=== PATIENT | female | born 2000 | race Caucasian/White ===

== ENCOUNTER 2024-02-02 17:56 | Emergency (ER) | payer OTHER, SELFPAY ==
[2024-02-02] VITALS (12 sets, daily range): BP systolic 122–174; BP diastolic 78–118; PULSE 86–120; TEMP 36.9; O2SAT 95–98; BMI 33.9
[2024-02-02 19:11] LABS: Bilirubin Urine NEGATIVE (NEGATIVE); Blood Urine NEGATIVE (NEGATIVE); Clarity Urine CLEAR (CLEAR); Color Urine LT. YELLOW (YELLOW); Glucose Urine UA NEGATIVE (NEGATIVE); Ketones Urine NEGATIVE (NEGATIVE); Leukocyte Esterase Urine SMALL (NEGATIVE); Nitrite Urine NEGATIVE (NEGATIVE); Protein Urine NEGATIVE (NEG/TRACE); Urobilinogen Urine 0.2 EU/dL (0.2-1.0)
[2024-02-02 19:19] LABS: Urine Microscopic Indicated YES
--- NOTE | 2024-02-02 19:20 | CT_ITS ---
[address] [address] Patient Name: SHIRA MOREIRA MRN: [id number] date: 2000 Sex: F Assigned Patient Location: ER Current Patient Location: ER Accession/Order Number: [id number] Exam Date: 02/02/2024 19:54 Report Date: 02/02/2024 21:58 At the request of: SYLVAIN WALLER Procedure: CT abdomen pelvis wo con EXAMINATION: CT abdomen pelvis wo con, 02/02/2024 7:54 PM EDT HISTORY: right flank pain COMPARISON: None. TECHNIQUE: CT scan of the abdomen and pelvis was performed without IV contrast. CT dose reduction technique was used, including Automated Exposure Control. FINDINGS: LOWER CHEST: The visualized lungs are clear. LIVER: Unremarkable. GALLBLADDER AND BILIARY SYSTEM: Unremarkable. SPLEEN: Unremarkable. PANCREAS: Unremarkable. ADRENAL GLANDS: Unremarkable. KIDNEYS AND URETERS: Punctate nonobstructing calculus in the upper pole the right kidney. 2 mm nonobstructing calculus in the mid to lower pole the left kidney. No ureteral calculus or hydronephrosis. No significant perinephric stranding. BLADDER: Under distended. GASTROINTESTINAL TRACT: No evidence of bowel obstruction or colitis. Normal appendix. VASCULATURE: The abdominal aorta is normal in caliber. RETROPERITONEUM: No lymphadenopathy. PERITONEUM/MESENTERY: No abdominal ascites. No free air. PELVIS: No pelvic ascites or lymphadenopathy. BODY WALL: Small fat-containing umbilical hernia. BONES: No acute abnormality. CT/CT abdomen pelvis wo con IMPRESSION: 1. Bilateral nephrolithiasis. No hydronephrosis. 2. Small fat-containing umbilical hernia. Electronically authenticated by: DANIAL NUÑEZ Date: 02/02/2024 21:58
--- NOTE | 2024-02-02 19:22 | ED_ITS ---
HPI HPI - General Adult General Chief complaint: Back Pain/Injury Stated complaint: FLANK PAIN Time Seen by Provider: 02/02/24 18:52 Source: patient History of Present Illness HPI narrative: Is a 23-year-old female who presents to the emergency department for the evaluation of multiple complaints. She states for the last day she has had right-sided low back pain radiating into the right lower quadrant and into the suprapubic abdomen. She denies any associated urinary complaints, fevers, chills, nausea or vomiting. She denies any previous abdominal surgeries. She further complains of swelling to the right labia minora that she noticed for the last day and was concerned that the 2 may be related. There has been no drainage from the vagina. She is not concerned for . She took ibuprofen prior to arrival. Related Data Previous Rx's ?Medication ?Instructions ?Recorded cephalexin 500 mg capsule 500 mg PO Q8H 5 days #15 caps 02/02/24 hyoscyamine sulfate 0.125 mg 0.125 mg PO Q6H PRN abdominal pain 02/02/24 tablet (Levsin) #12 tabs ketorolac 10 mg tablet 10 mg PO TID PRN pain #10 tabs 02/02/24 ondansetron 4 mg disintegrating 4 mg PO Q6H PRN nausea and 02/02/24 tablet vomiting #12 tabs Allergies Allergy/AdvReac Type Severity Reaction Status Date / Time No Known Drug Allergies Allergy Verified 02/02/24 18:01 Opioid HPI Opioid Management Most Recent Opioid Data: Last Pain Scale 7 02/02/24 19:40 Last ED Pain Assessment 02/02/24 20:30 Last MAR Pain Assessment 02/02/24 19:40 Review of Systems ROS Constitutional Denies: fever or chills Ears, nose, mouth, and throat Denies: throat pain or nasal congestion Respiratory Denies: shortness of breath Gastrointestinal Reports: abdominal pain; Denies: nausea or vomiting Genitourinary Reports: genital lesion; Denies: painful urination Musculoskeletal Reports: back pain; Denies: neck pain Integumentary/Breast Denies: rash Hematologic/Lymphatic Denies: easy bruising or easy bleeding Exam Narrative Exam Narrative: Gen.: Awake, alert, in no distress Head: Normocephalic, atraumatic ENT: Moist mucous membranes Respiratory: No respiratory distress, lungs clear bilaterally Cardio: Regular rate and rhythm Gastrointestinal: Abdomen is soft, nondistended and tender to palpation in the suprapubic abdomen and right lower quadrant with no McBurney's point tenderness Back: No CVA tenderness, no tenderness over the T-spine or L-spine : Minimal induration and swelling of the right labia minora consistent with a small/early Bartholin cyst Extremities: Moves extremities equally Psych: Normal mood and affect Neuro: No focal neuro deficit Skin: Warm, dry, intact Constitutional Vital Signs, click to edit/add: Last Vital Signs Temp 98.5 F 02/02/24 18:01 Pulse 86 02/02/24 21:04 Resp 18 02/02/24 18:01 BP 124/78 02/02/24 21:45 Pulse Ox 97 02/02/24 21:50 O2 Del Method Room Air 02/02/24 18:01 Course Vital Signs Vital signs: Vital Signs Temperature 98.5 F 02/02/24 18:01 Pulse Rate 120 H 02/02/24 18:01 Respiratory Rate 18 02/02/24 18:01 Blood Pressure 174/118 H 02/02/24 18:01 Pulse Oximetry 98 02/02/24 18:01 Oxygen Delivery Method Room Air 02/02/24 18:01 Temperature 98.5 F 02/02/24 18:01 Pulse Rate 86 02/02/24 21:04 Respiratory Rate 18 02/02/24 18:01 Blood Pressure 124/78 02/02/24 21:45 Pulse Oximetry 97 02/02/24 21:50 Oxygen Delivery Method Room Air 02/02/24 18:01 Medical Decision Making [facility] Narrative Medical decision making narrative: Studies reviewed and noted showing mild urinary tract infection, exam is consistent with an early Bartholin cyst on the labia. Patient treated with Keflex in the ER. Her pain has improved with IV fluids, pain medication and Levsin. Her vital signs are normal on reevaluation by attending physician. Abdomen is soft and benign. CT of the abdomen and pelvis with no evidence of acute process, patient discharged home on Keflex, Levsin and Toradol to follow- up with PCP and [employer] REPRESENTATIVE. Return to the ER if symptoms change or worsen SHARED APC VISIT, PHYSICIAN ATTESTATION: Txoj-qi-dkue I performed a substantive part of the MDM during the patient?s E/M visit. I personally evaluated and examined the patient. I personally made or approved the documented management plan and acknowledge its risk of complications. Medical Records Medical records reviewed: Yes I reviewed the patient's medical records Lab Data Lab results reviewed: Yes I reviewed the patient's lab results Labs: Lab Results 02/02/24 02/02/24 Range/Units 18:45 19:40 WBC 10.5 (4.0-11.0) 10^3/uL RBC 4.10 L (4.20-5.40) 10^6/uL Hgb 13.0 (12.0-16.0) g/dL Hct 39.1 (36.0-48.0) % MCV 95.4 (81.0-99.0) fL MCH 31.7 (26.7-34.0) pg MCHC 33.2 (29.9-35.2) g/dL RDW 12.9 (11.0-15.0) % Plt Count 325 (150-450) 10^3/uL MPV 11.8 (9.5-13.5) fL Neut % (Auto) 70.8 (43.0-75.0) % Lymph % (Auto) 17.7 L (20.5-60.0) % [place] % (Auto) 9.6 (1.7-12.0) % Eos % (Auto) 1.1 (0.9-7.0) % Baso % (Auto) 0.5 (0.2-2.0) % Neut # (Auto) 7.4 H (1.4-6.5) 10^3/uL Lymph # (Auto) 1.9 (1.2-3.8) 10^3/uL [place] # (Auto) 1.0 H (0.3-0.8) 10^3/uL Eos # (Auto) 0.1 (0.0-0.7) 10^3/uL Baso # (Auto) 0.1 (0.0-0.1) 10^3/uL Abs Immat Gran (auto) 0.03 (0.00-0.03) 10^3/uL Imm/Tot Granulo (auto) 0.3 (0.0-0.5) % Sodium 142 (136-145) mmol/L Potassium 3.4 L (3.5-5.1) mmol/L Chloride 105 (98-107) mmol/L Carbon Dioxide 26.8 (21.0-32.0) mmol/L Anion Gap 13.6 BUN 9.0 (7.0-18.0) mg/dL Creatinine 0.79 (0.55-1.02) mg/dL Est GFR ( Amer) >60 (>=60) Est GFR (Non-Af Amer) >60 (>=60) BUN/Creatinine Ratio 11.4 Glucose 111 H (74-106) mg/dL Lactate 1.7 (0.4-2.0) mmol/L Calcium 8.9 (8.5-10.1) mg/dL Total Bilirubin 0.3 (0.2-1.0) mg/dL AST 18 (15-37) U/L ALT 18 (14-59) U/L Alkaline Phosphatase 63 (46-116) U/L Total Protein 7.7 (6.4-8.2) g/dL Albumin 3.8 (3.4-5.0) g/dL Globulin 3.9 g/dL Albumin/Globulin Ratio 1.0 Urine Color Lt. yellow (YELLOW) Urine Clarity Clear (CLEAR) Urine pH 6.0 (5.0-9.0) Ur Specific [place] 1.020 (1.005-1.025) Urine Protein Negative (NEG/TRACE) mg/dL Urine Glucose (UA) Negative (NEGATIVE) mg/dL Urine Ketones Negative (NEGATIVE) mg/dL Urine Occult Blood Negative (NEGATIVE) Urine Nitrite Negative (NEGATIVE) Urine Bilirubin Negative (NEGATIVE) Urine Urobilinogen 0.2 (0.2-1.0) EU/dL Ur Leukocyte Esterase Small A (NEGATIVE) Urine RBC 0-2 (0-2) #/HPF Urine WBC 2-5 A (NONE SEEN) #/HPF Ur Squamous Epith Cells Few A (NONE/RARE) #/LPF Urine Crystals None seen (None Seen) #/HPF Urine Bacteria Moderate A (NONE SEEN) #/HPF Urine Casts None seen (NONE SEEN) #/LPF Urine Mucus None seen (NONE SEEN) Ur Culture Indicated? Yes Urine HCG, Qual Negative (NEGATIVE) Imaging Data CT scan - abdomen: Attestation: I have reviewed the pertinent imaging results. Radiologist's impression: ITS Impressions Abdomen/Pelvis CT 02/02/24 19:20 IMPRESSION: 1. Bilateral nephrolithiasis. No hydronephrosis. 2. Small fat-containing umbilical hernia. Electronically authenticated by: DANIAL NUÑEZ Date: 02/02/2024 21:58 Discharge Plan Discharge Stand Alone Forms: Portal Instructions Chief Complaint: Back Pain/Injury Clinical Impression: UTI (urinary tract infection), Labial abscess, Abdominal pain Patient Disposition: Home, Self-Care Time of Disposition Decision: 22:02 Condition: Good Prescriptions / Home Meds: New ketorolac 10 mg tablet 10 mg PO TID PRN (Reason: pain) Qty: 10 0RF cephalexin 500 mg capsule 500 mg PO Q8H 5 Days Qty: 15 0RF hyoscyamine sulfate [Levsin] 0.125 mg tablet 0.125 mg PO Q6H PRN (Reason: abdominal pain) Qty: 12 0RF ondansetron 4 mg tablet,disintegrating 4 mg PO Q6H PRN (Reason: nausea and vomiting) Qty: 12 0RF Print Language: Maori Instructions: Urinary Tract Infection in Women (ED), Abdominal Pain (ED) Referrals: Alvaro Sidhu DO [Physician] - 1 week Physician,Non-Staff, MD [Primary Care Provider] - 1 week
[2024-02-02 19:29] LABS: Bacteria Urine MODERATE #/HPF (NONE SEEN); Cast Seen? NONE SEEN #/LPF (NONE SEEN); Crystals Seen? None Seen #/HPF (None Seen); Mucus Urine NONE SEEN (NONE SEEN); RBC Urine 0-2 #/HPF (0-2); Squamous Epithelial Cell Urine FEW #/LPF (NONE/RARE); Urine Culture Indicated YES
[2024-02-02 19:39] LABS: HCG Qualitative Urine* NEGATIVE (NEGATIVE); Internal Control Within Normal Limits
[2024-02-02] MEDS: ONDANSETRON PF 4 MG/2 ML VIAL IV (19:39)
[2024-02-02] MEDS: HYOSCYAMINE SULFATE 0.125 MG TAB.SUBL SL (19:39)
[2024-02-02] MEDS: HYDROMORPHONE HCL 0.5 MG/0.5 ML SYRINGE IV (19:40)
[2024-02-02] MEDS: 0.9 % SODIUM CHLORIDE 1,000 ML 1000 ML IV (19:43)
[2024-02-02 19:52] LABS: Basophils Absolute Auto 0.1 10^3/uL (0.0-0.1); Basophils Percent Auto 0.5 % (0.2-2.0); Eosinophils Absolute Auto 0.1 10^3/uL (0.0-0.7); Eosinophils Percent Auto 1.1 % (0.9-7.0); Hematocrit 39.1 % (36.0-48.0); Immature Granulocytes Abs Auto 0.03 10^3/uL (0.00-0.03); Immature Granulocytes Pct Auto 0.3 % (0.0-0.5); Lymphocytes Absolute Auto 1.9 10^3/uL (1.2-3.8); Lymphocytes Percent Auto 17.7 % (20.5-60.0); Mean Corpuscular HGB Conc 33.2 g/dL (29.9-35.2); Mean Corpuscular Hemoglobin 31.7 pg (26.7-34.0); Mean Corpuscular Volume 95.4 fL (81.0-99.0); Mean Platelet Volume 11.8 fL (9.5-13.5); Monocytes Percent Auto 9.6 % (1.7-12.0); Neutrophils Absolute Auto 7.4 10^3/uL (1.4-6.5); Neutrophils Percent Auto 70.8 % (43.0-75.0); Platelet Count 325 10^3/uL (150-450); Red Cell Distribution Width 12.9 % (11.0-15.0); White Blood Count 10.5 10^3/uL (4.0-11.0)
[2024-02-02 20:10] LABS: Lactate/Lactic Acid 1.7 mmol/L (0.4-2.0)
[2024-02-02 20:17] LABS: Alanine Aminotransferase 18 U/L (14-59); Albumin Level 3.8 g/dL (3.4-5.0); Alkaline Phosphatase 63 U/L (46-116); Anion Gap 13.6; Aspartate Amino Transferase 18 U/L (15-37); BUN Creatinine Ratio 11.4; Bilirubin Total 0.3 mg/dL (0.2-1.0); Calcium 8.9 mg/dL (8.5-10.1); Carbon Dioxide 26.8 mmol/L (21.0-32.0); Chloride 105 mmol/L (98-107); Estimated GFR (African America >60 (>=60); Estimated GFR (Non-African Ame >60 (>=60); Globulin 3.9 g/dL; Glucose 111 mg/dL (74-106); Potassium 3.4 mmol/L (3.5-5.1); Sodium 142 mmol/L (136-145); Total Protein 7.7 g/dL (6.4-8.2)
[2024-02-02] MEDS: CEPHALEXIN 500 MG CAPSULE PO (21:54)
== END 2024-02-02 22:13 | disposition home or self-care (01) ==
PROVIDERS: Physician Assistant; Emergency Provider Emergency Medicine
DX: N39.0 Urinary tract infection, site not specified (principal); R10.9 Unspecified abdominal pain; N76.4 Abscess of vulva
CPT/HCPCS: 36415; 74176; 80053; 81001; 83605; 84703; 85025; 87086; 96374; 96375; 99285; J1170; J2405

== ENCOUNTER 2025-06-01 10:02 | Outpatient (OUT) | payer OTHER, SELFPAY ==
--- OUTSIDE RECORDS SUMMARY | 2025-06-01 10:09 | XMS_ITS | Clinical Summary ---
Author Organization [facility] Address [address] [place] [address] Care Team Providers Care Television News Video Editor Name Role Phone Shannon Anna NP Primary Care Provider Allergies Active AllergyReactionsCriticalityNoted DateCommentsLidocaineDizziness,Swelling 12/02/2024 Swelling at injection site Medications MedicationSigDispense QuantityRefillsLast FilledStart DateEnd DateStatus metFORMIN XR (Glucophage-XR) 500 MG 24 hr tablet Indications:PCOS (polycystic ovarian syndrome)Take 1 tablet (500 mg) by mouth in the evening. Take with meals Do not crush, chew, or split. 30 tablet 11001/12/575536/6Active metFORMIN XR (Glucophage-XR) 500 MG 24 hr tablet Indications:Insulin resistanceTake 2 tablets (1,000 mg) by mouth in the evening. Take with meals Do not crush, chew, or split. 60 tablet 11002/09/615422/6Active Encounters DateTypeDepartmentCare BtplWtpnxbqgvsf42/29/2025 9:20 AM EDTRoutine [facility] [address] [place] [address] [place] [address] Cammy Cruz, PEARL Second trimester ([facility]); 14 weeks gestation of ([facility])04/27/2025amboo flowsheet [facility] [address] [place] [address] [place] [address] Cammy Cruz NP 03/25/2025 10:00 AM EDTInitial [facility]al [facility] [place] [address] [place]: 9w5d03/25/2025 9:30 AM EDTAncillary Procedure [facility] [address] [place] [address] [place] [address] Missed menses; Positive urine test ([facility])03/18/2025Travelfrom Last 3 Months Social History Tobacco UseTypesPacks/DayYears UsedDateSmoking Tobacco: Never Assessed Estimated Date of TlymsmzcLfbovvxvOkk63/26/2026ased on UltrasoundSex and Gender InformationValueDate RecordedSex Assigned at BirthNot on fileLegal SexFemale 12/21/2024 3:32 PM EDTGender IogdmcabFltpxq10/13/2025 2:01 PM EDTSexual OrientationNot on file Last Filed Vital Signs Vital SignReadingTime TakenCommentsBlood Fmxlsqaq026/7010 9:31 AM EDT Pulse--Temperature--Respiratory Rate--Oxygen Saturation--Inhaled Oxygen Concentration--Omapdp651 kg (283 lb 4 oz)04/27/2025 9:31 AM GAERgcqsu502.3 cm (5' 11 )02/09/2025 2:20 PM EDTBody Mass Index39.51002/09/2025 2:20 PM EDT Plan of Treatment DateTypeDepartmentCare Team (Latest Contact Info)Xtddvukpgog76/03/2025 11:20 AM ESTRoutine [facility] [address] [place] [address] [place] [address] Alvaro Sidhu DO [address] [place] [address] [address] [place], [place] [id number] Health MaintenanceDue DateLast DoneCommentsCOVID-19 Vaccine ( season) 2025Influenza Vaccine (#1)513Pneumococcal Vaccine: Pediatrics (0 to 5 Years) and At-Risk Patients (6 to 64 Years)Aged OutNo longer eligible based on patient's age to complete this topic Procedures Procedure NamePriorityDate/TimeAssociated DiagnosisCommentsPOCT URINALYSIS WLWKWNWKBvwwpzz85/29/2025 9:35 AM EDT Second trimester ([facility]) POCT URINALYSIS TDXOTUOWAujrulj71/26/2025 11:16 AM EDT Missed menses POCT , ZZZNAKngbjtk50/26/2025 11:16 AM EDT Missed menses US OB WBXQLVZWLVVKCvyhpmn41/26/2025 10:36 AM EDT Missed menses Positive urine test ([facility]) from Last 3 Months Results * (ABNORMAL) POCT urinalysis dipstick manually resulted (04/27/2025 9:35 AM EDT) Only the most recent of2 resultswithin the time period is included. ComponentValueRef RangeTest MethodAnalysis TimePerformed AtPathologist Signature Color, UAYellowClarity, UAClearGlucose, UANegativeNegative - 2000(110) ++++ mg/dLBilirubin, UANegativeNegative - 4(70) +++ mg/dLKetones, UANegativeNegative - 160(16) ++++ mg/dLSpec Grav, UA1.0151 - 1.03Blood, UANegativeNegative - 50 Jostin/mcLpH, UA6.05 - 9Protein, UANegativeNegative - 2000(20) ++++ mg/dL Urobilinogen, UA0.20.2 - 12 mg/dLLeukocytes, UAPositiveNegative - 500+++ Elian/mcL Comment:1+Nitrite, UANegativeNegative - PositiveSpecimen (Source)Anatomical Location / LateralityCollection Method / VolumeCollection TimeReceived TimeUrine 04/27/2025 9:35 AM EDT Narrative Authorizing ProviderResult TypeResult StatusKrmakeda Dukeerly NPPOINT OF CARE TEST ENTER/EDIT ORDERABLESFinal Result * (ABNORMAL) POCT , urine manually resulted (03/25/2025 11:16 AM EDT) ComponentValueRef RangeTest MethodAnalysis TimePerformed AtPathologist SignaturePreg Test, UrPositiveNegativeSpecimen (Source)Anatomical Location / LateralityCollection Method / VolumeCollection TimeReceived TimeUrine 03/25/2025 11:16 AM EDT Narrative Authorizing ProviderResult TypeResult StatusCorey Nahum DOPOINT OF CARE TEST ENTER/EDIT ORDERABLESFinal Result * US OB transvaginal (03/25/2025 10:36 AM EDT)Anatomical RegionLaterality ModalityBodyUltrasoundSpecimen (Source)Anatomical Location / Laterality Collection Method / VolumeCollection TimeReceived Time03/25/2025 11:53 AM EDT Impressions 03/25/2025 12:34 PM EDT Findings consistent with a live intrauterine gestation, current sonographic age of 9 weeks and 5 days resulting in an estimated date of delivery of October 23, 2025 TRANSCRIBED BY: ? ELECTRONICALLY SIGNED BY: Mayur Comer MD Narrative 03/25/2025 12:34 PM EDT FINDINGS: A single intrauterine gestational sac is present. ??No subchorionic hemorrhage. ??A single pole is present. Normal heart rate at 166 beats per minute. ??Yolk sac also is seen. ?? Current sonographic age is 9 weeks and 5 days based on the crown-rump length measurement of 2.9 cm. ??Based on this age, current estimated date of delivery is October 23, 2025. ?? No pelvic fluid or adnexal mass present. ??Cervix is closed, 4.6 cm. Procedure Note Mayur Comer MD - 03/25/2025 FINDINGS: A single intrauterine gestational sac is present. No subchorionichemorrhage. A single pole is present. Normal heart rate at166 beats per minute. Yolk sac also is seen. Current sonographic age is9 weeks and 5 days based on the crown-rump length measurement of 2.9 cm.Based on this age, current estimated date of delivery is October 23, 2025.No pelvic fluid or adnexal mass present. Cervix is closed, 4.6 cm. IMPRESSION: Findings consistent with a live intrauterine gestation, currentsonographic age of 9 weeks and 5 days resulting in an estimated date ofdelivery of October 23, 2025 TRANSCRIBED BY: ELECTRONICALLY SIGNED BY: Mayur Comer MD Authorizing ProviderResult TypeResult StatusCorey Nahum DOIMG OB US PROCEDURES Final Result from Last 3 Months Insurance Care Teams Team MemberRelationshipSpecialtyStart DateEnd Date Shannon Anna NP [facility] [place] [address] PCP - GeneralFamily Medicine01/12/25
--- OUTSIDE RECORDS SUMMARY | 2025-06-01 10:09 | XMS_ITS | Clinical Summary ---
Author Organization [employer] s tem Address [id number] [address] [place] [address] Care Team Providers Care Sand Caster Apprentice Name Role Phone Shannon Anna Primary Care Provid er Allergies Active AllergyReactionsCriticalityNoted WirgCehjihuzCgbwdurqqUyfutlac51/05/2025 Swelling at injection site Medications No known medications Social History Tobacco UseTypesPacks/DayYears UsedDateSmoking Tobacco: Never AssessedAlcohol UseStandard Drinks/WeekCommentsYes0 (1 standard drink = 0.6 oz pure alcohol) socialHunger ScreeningAnswerDate RecordedWithin the past 12 months we worried whether our food would run out before we got money to buy more.Never True 12/02/2024Within the past 12 months the food we bought just didn't last and we didn't have money to get more.Never True12/02/2024CommentsUnknownSex and Gender InformationValueDate RecordedSex Assigned at BirthNot on fileLegal Sex Tzmpqj3712/02/2024 4:43 PM EDTGender IdentityNot on fileSexual OrientationNot on file Last Filed Vital Signs Vital SignReadingTime TakenCommentsBlood Nlgtvgmr015/95012/02/2024 4:58 PM EDT Qwnyu08553/05/2025 4:58 PM SXNUsigjmyghbx08.2 ??C (99 ??F)12/02/2024 4:58 PM EDT Respiratory Usra210412/02/2024 4:58 PM EDTOxygen Wwkzikjhit37%12/02/2024 4:58 PM EDTInhaled Oxygen Concentration--Tdcndt515.2 kg (265 lb)12/02/2024 4:58 PM EDT Rkoqdp651.3 cm (5' 11 )12/02/2024 4:58 PM EDTBody Mass Index36.9612/02/2024 4:58 PM EDT Plan of Treatment Health MaintenanceDue DateLast DoneCommentsDepression Vhahvxsru13/18/2015Tobacco Bfdnxbcvx26/18/2015dult BMI Follow Up Plan1DTaP,Tdap and Td Vaccines (1 - Tdap)2Pap Smear11/15/2023OVID-19 Vaccine (2 - season) /Influenza Jsetopf18dult BMI Screening Medical Devices Not on file Insurance Care Teams Team MemberRelationshipSpecialtyStart DateEnd Date Shannon Anna APRN-NP [address] [place] [address] PCP - GeneralNurse Practitioner12/02/24
--- OUTSIDE RECORDS SUMMARY | 2025-06-01 10:33 | XMS_ITS | CCD ---
Author Organization [facility] Care Team Providers Care Mail Superintendent Name Role Phone REQUEST, DR NONE LISTED Primary Care Unavaila ble PAY, DR DELVALLE Admitting Unavailable PAY, DR DELVALLE Attending Unavailable PAY, DR DELVALLE Consulting Unavailable ALEXEY Anna Primary Care Provider ALEXEY Anna Attending Provider ALEXEY Gurrola Attending Provider [phone] NO FAMILY, PHYSICIAN Primary Care Provider Unava ilable Maira Stoddard APRN Attending Provider [phone] SHANNON ANNA Primary Care Unavailable SonurbacheShannon harvey NP Primary Care Provider NO FAMILY, PHYSICIAN Primary Care Provider Unava ilable Melody Goodson CMA Attending Provider Unavaila Carmen Chau DO Attending Provider Shannon Anna Admitting Unavailable Shannon Anna Primary Care Unavailable Shannon Anna Attending Unavailable NO FAMILY, PHYSICIAN Primary Care Unavailable Tricia Gurrola Admitting Unavailable Tricia Gurrola Attending Unavailable Carmen Sidhu Admitting Unavailable Carmen Sidhu Attending Unavailable NO FAMILY, PHYSICIAN Primary Care Unavailable NO FAMILY, PHYSICIAN Primary Care Unavailable Maira Stoddard Admitting Unavailable Maira Stoddard Attending Unavailable CAMMY CRUZ Attending Unavailable CARMEN SIDHU Referring Unavailable CARMEN SIDHU Attending Unavailable CARMEN SIDHU Attending Unavailable Allergies Allergy ClassificationReported Allergen(s)Allergy TypeDate of OnsetReaction(s) Facility (19 sources)Lidocaine; Translations: [LIDOCAINE]Drug Ljzmoqi70-39-3357HcinzmiyrOhioHealth [facility] (3 sources)pineAllergy to -[phone]n Community Hospital Medications Current Medications MedicationDrug Class(es)DatesSig (Normalized)Sig (Original)[id number] 200 actuat albuterol 0.09 mg/actuat metered dose inhaler (1 source)beta2-Adrenergic AgonistStart: 11-84-0141wbcz 1 puff(s) by inhalation every four hoursdextromethorphan hydrobromide 15 mg / guaiFENesin 400 mg / pseudoephedrine hydrochloride 60 mg oraltablet (1 source)alpha-Adrenergic Agonist, Uncompetitive B-bntgjz-J-aspartate Receptor Antagonist, Sigma-1 AgonistStart: 92-50-2850bkxk 4 tablets by mouth every twenty-four hours as hr metFORMIN hydrochloride 500 mg extended release oral tablet (20 sources)BiguanideStart: 02-09-2025 End: 17-64-5133kmyh 2 tablets by mouth every twenty-four hours at mealtime metFORMIN XR (Glucophage-XR) 500 MG 24 hr tablet Indications: Insulin resistance Take 2 tablets (1,000 mg) by mouth in the evening. Take with meals Do not crush, chew, or split. 60 tablet 11 02/09/2025 02/09/2026 ActiveStart: 01-12-2025 End: 21-38-5370zwuv 1 tablet by mouth every twenty-four hours at mealtime metFORMIN XR (Glucophage-XR) 500 MG 24 hr tablet Indications: PCOS (polycystic ovarian syndrome) Take 1 tablet (500 mg) by mouth in the evening. Take with meals Do not crush, chew, or split. 30 tablet 11 01/12/2025 01/12/2026 Active methylPREDNISolone 4 mg oral tablet (1 source)CorticosteroidStart: 90-63-8007egkc 1 tablet by mouth onceNo Name (No Known Home Meds) (2 sources)Start: 53-49-4234Ri Name (No Known Home Meds) Active August 26, 2024 12:00amondansetron 4 mg disintegrating oral tablet (1 source)Serotonin-3 Receptor AntagonistStart: 03-25-2025 End: 41-90-4676ncfq 1 tablet by mouth every six hours for nauseaondansetron ODT (Zofran-ODT) 4 MG disintegrating tablet Indications: , unspecified gestational age ([facility]) , Nausea Take 1 tablet (4 mg) by mouth every 6 (six) hours if needed for nausea or vomiting 30 tablet 2 03/25/2025 04/24/2025 Active Completed/Discontinued Medications MedicationDrug Class(es)DatesSig (Normalized)Sig (Original)hyoscyamine sulfate 0.125 mg oral tablet (5 sources)Start: 02-09-2024 End: 71-68-5872vpov 1 tablet by mouth every six hours as neededHyoscyamine Sulfate 0.125 mg tablet Discontinued 0.125 MG PO Every 6 hours as needed February 09, 2024 12:00am August 26, 2024 3:23pmketorolac tromethamine 10 mg oral tablet (5 sources)Nonsteroidal Anti-inflammatory Drug, Cyclooxygenase InhibitorStart: 02-09-2024 End: 11-51-9430ispb 1 tablet by mouth three times daily as neededKetorolac 10 mg tablet Discontinued 10 MG PO Three times daily as needed February 09, 2024 12:00am August 26, 2024 3:23pm Problems Active Problems Problem ClassificationProblemDateDocumented DateEpisodic/Chronic Administrative/social admission (2 sources)Patient encounter status; Translations: [Person consulting for explanation of examination or test findings]97-41-2808IbzmflgiFndfrqavc disorders (7 sources)Menorrhagia; Translations: [Excessive and frequent menstruation with regular cycle]45-98-3670UeuyynfHkcqns and vomiting (1 source)Nausea; Translations: [Nausea]74-43-5603TjachkugEokvbazhovov breast conditions (4 sources)Abscess of the breast and nipple; Translations: [ABSCESS OF THE BREAST AND NIPPLE]Onset: 19-44-4921HgttaajsQjopv endocrine disorders (2 sources)Polycystic ovary syndrome; Translations: [Polycystic ovarian syndrome]74-96-2769ToesjpvYllqf gastrointestinal disorders (1 source)Constipation, unspecified; Translations: [Constipation, unspecified] Onset: 70-20-0266RzehcctwObfec gastrointestinal disorders (1 source)ConstipationOnset: 79-46-8854QyuhalbkMrbjx nutritional; endocrine; and metabolic disorders (2 sources)Insulin resistance; Translations: [Insulin resistance]02-09-2025 ChronicOther and delivery including normal (4 sources); Translations: [Encounter for supervision of normal , unspecified, unspecified trimester]28-01-9741FicgmeteEoogboud codes; unclassified (1 source)Gestation period, 9 weeks; Translations: [9 weeks gestation of ]84-81-5243LljnzmxaQeupcqpn codes; unclassified (2 sources)Gestation period, 14 weeks; Translations: [14 weeks gestation of ]20-02-8998KbspnyfrRowgewg and strains (1 source)Sprain of unspecified ligament of left ankle, initial encounter; Translations: [Sprain of ankle, unspecified site]04-10-6326BhfvrwgcTijeznijmdfl (1 source)CystOnset: 67-89-1562Ewmogqvqtcrp (1 source)STOMACH PAIN, CONSTIPATIONOnset: 12-02-2024 Past or Other Problems Problem ClassificationProblemDateDocumented DateEpisodic/ChronicAbdominal pain (8 sources)Right flank pain; Translations: [Unspecified abdominal pain]Onset: 495445-47-8406CvjgsfcxWfadrvuu of urinary tract (8 sources)Kidney stone; Translations: [Calculus of kidney]Onset: 02-12-2024 49-15-7035AmdxneqoGmoxxmpsgnuow symptoms and ill-defined conditions (1 source)Dysuria; Translations: [Dysuria]Onset: 92-60-6799Rgvxytpe Results Test NameValueInterpretationReference RangeFacilityUrinalysis macro (dipstick) panel (U)on 74-55-0423Eqbfshkyh, UANegativeNegative - 4(70) +++ mg/dLNOMS HealthcareBlood, UANegativeNegative - 50 Jostin/mcLNOMS HealthcareClarity, UAClear NOMS HealthcareColor, UAYellowNOMS HealthcareGlucose, UANegativeNegative - 2000(110) ++++ mg/dLNOMS HealthcareInterpretation and review of laboratory resultsAbnormalNOMS HealthcareKetones, UANegativeNegative - 160(16) ++++ mg/dL NOMS HealthcareLeukocytes, UAPositiveNegative - 500+++ Elian/mcLNOMS Healthcare Comment on above:1+Nitrite, UANegativeNegative - PositiveNOMS HealthcarepH, UA 6.05 - 9NOMS HealthcareProtein, UANegativeNegative - 1999(20) ++++ mg/dLNOMS HealthcareSpec Grav, UA1.0151 - 1.03NOMS HealthcareUrobilinogen, UA0.20.2 - 12 mg/dLNOMS HealthcareNOMS HealthcareHCG ( test) Ql (U)on 03-25-2025 Interpretation and review of laboratory resultsAbnormalNOMS HealthcarePreg Test, UrPositiveNegativeNOMS HealthcareNOMS HealthcareUS OB TRANSVAGINALon 03-25-2025 US OB TRANSVAGINALFINDINGS: A single intrauterine gestational sac is present. No subchorionic hemorrhage. A single pole is present. Normal heart rate at 166 beats per minute. Yolk sac also is seen. Current sonographic age is 9 weeks and 5 days based on the crown-rump length measurement of 2.9 cm. Based on this age, current estimated date of delivery is October 23, 2025. No pelvic fluid or adnexal mass present. Cervix is closed, 4.6 cm. IMPRESSION: Findings consistent with a live intrauterine gestation, current sonographic age of 9 weeks and 5 days resulting in an estimated date of delivery of October 23, 2025 TRANSCRIBED BY: ELECTRONICALLY SIGNED BY: Vicki Mac AvailableComment on above:Order Comment: US OB TRANSVAGINAL No LMP recorded.Urinalysis macro (dipstick) panel (U)on 25-18-7907Uzwfvtwhf, UA NegativeNegative - 4(70) +++ mg/dLNOMS HealthcareBlood, UANegativeNegative - 50 Jostin/mcLNOMS HealthcareClarity, UAClearNOMS HealthcareColor, UAYellowNOMS HealthcareGlucose, UANegativeNegative - 1999(110) ++++ mg/dLNOMS Healthcare Interpretation and review of laboratory resultsNormalNOMS HealthcareKetones, UA NegativeNegative - 160(16) ++++ mg/dLNOMS HealthcareLeukocytes, UANegative Negative - 500+++ Elian/mcLNOMS HealthcareNitrite, UANegativeNegative - Positive NOMS HealthcarepH, UA65 - 9NOMS HealthcareProtein, UANegativeNegative - 1999(20) ++++ mg/dLNOWA HealthcareSpec Grav, UA1.0251 - 1.03NOWA HealthcareUrobilinogen, UA1.00.2 - 12 mg/dLNOSaint Louis University Health Science CenterNOMS HealthcareUS PELVIC COMPLETE W/ TVon 50-26-7299PO PELVIC COMPLETE W/ TVEXAM: US PELVIC COMPLETE W/ TV HISTORY: PCOS, menorrhagia, heavy painful periods. COMPARISON: None available. TECHNIQUE: Two-dimensional transabdominal grayscale ultrasound imaging of the pelvis was performed.Color flow Doppler imaging of the ovaries was also performed. Transvaginal was performed. FINDINGS: UTERUS 8.6 x 3.9 x 5.1 cm The uterus is anteverted in position and demonstrates a normal, homogeneous echotexture. ENDOMETRIUM 1.7 cm The endometrium demonstrates a normal, homogeneous echotexture. RIGHT OVARY 3.5 x 2.1 x 2.7 cm The right ovary demonstrates a normal echotexture. The ovarian volume is 11 mL. There is normal color Doppler flow. LEFT OVARY 2.5 x 1.7 x 2.3 cm The left ovary demonstrates a normal echotexture. The ovarian volume is 5 mL. There is normal colorDoppler flow. Mild fluid is present within the cul-de-sac. IMPRESSION: 1. Thickened endometrium. This may be related to patient's menstrual cycle. 2. Normal color Doppler flow within the bilateral ovaries. 3. Mild fluid within the cul-de-sac. Interpreted by: Electronically signed by GOLDEN DANIEL II, MD, PHD at 17-Feb-2025 08:05:52 AM [facility] TeleradiologyNormalNot AvailableComment on above:Order Comment: US PELVIS-TRANSVAG IF INDICATED Patient's last menstrual period was 12/27/2024.Antimullerian hormone (AMH)on 91-26-4036WKSJ-MULLERIAN HORMONE1.56 ng/mL.NOMS HealthcareComment on above:For assays employing antibodies, the possibility exists for interference by heterophile antibodies in the samples.1 1.Leah Yin. Interferences in Immunoassays - still a threat. Clin. Chem. 2000; 46: 1761-0421. This test was developed and its performance characteristics determined by [employer]. It has not been cleared or approved by the Food and Drug Administration. Reference Range: Females 20 - 25y: 1.23 - 11.51 Median 4.70 AMH concentrations of >= 1.06 ng/mL is correlated with a better response to ovarian stimulation, produced more retrievable oocytes and higher odds of live according to Billy et al. Fertility and Sterility. 2010: 94:3956-6750. The current AMH test method correlates with the study method with a slope of 0.94. Females at risk of ovarian hyperstimulation syndrome or polycystic ovarian syndrome (PCOS) may exhibit elevated serum AMH concentrations. AMH levels from PCOS patients may be 2 to 5 fold higher than age-appropriate reference interval values. Granulosa cell tumors of the ovary may secrete AMH along with other tumor markers. Elevated AMH is not specific for malignancy, and the assay should not be used exclusively to diagnose or exclude an AMH-secreting ovarian tumor. Performed at: [facility] [address] [place] [id number] Occupational Health Physician: Ian Mitchell MD, Phone: [phone] [facility] Medical CenterHemoglobin a1c with eagon 44-41-8584Mxfdgby [Mass/Vol]117 mg/dL [facility] Medical CenterHbA1c (Bld) [Mass fraction]5.7 %High4.3 - 5.6 %[facility] Comment on above:Increased risk for diabetes: 5.7 - 6.4 diabetes: >6.4 glycemic control for adults with diabetes: <7.0 Interpretation and review of laboratory resultsAbnormalMercy Hospital St. John's QyvhokowsnS8O with Estimated Average Gluon 29-12-1765Qpbmquf [Mass/Vol]117 mg/dL NormalThe [facility]rium [facility] Cleveland Physician GroupComment on above:Result Comment: PERFORMED BY: [place] [address] PATHOLOGIST FAMILY SUPPORT SPECIALIST PARAMJIT CHAN M.D.Performed By: #### A1C WTH eA, TSH3, CBC, T4F, FSH, HCGQNT #### [place] [address] [place] #### LH, AMH, DHEA, DHEAS #### [facility] ,HbA1c (Bld) [Mass fraction]5.7 %High4.3-5.6The [facility] Physician GroupComment on above:Result Comment: Increased risk for diabetes: 5.7 - 6.4 diabetes: >6.4 glycemic control for adults with diabetes: <7.0Performed By: #### A1C WTH eA, TSH3, CBC, T4F, FSH, HCGQNT #### [address] #### LH, AMH, DHEA, DHEAS #### [facility] ,Anti-Mullerian Hormoneon 29-52-7190Wntf-Mullerian Hormone1.56 ng/mLNormal.[facility] Physician GroupComment on above:Result Comment: For assays employing antibodies, the possibility exists for interference by heterophile antibodies in the samples.1 1.Leah Yin. Interferences in Immunoassays - still a threat. Clin. Chem. 2000; 46: 0961-7846. This test was developed and its performance characteristics determined by [facility]. It has not been cleared or approved by the Food and Drug Administration. Reference Range: Females 20 - 25y: 1.23 - 11.51 Median 4.70 AMH concentrations of >= 1.06 ng/mL is correlated with a better response to ovarian stimulation, produced more retrievable oocytes and higher odds of live according to Gleicher et al. Fertility and Sterility. 2010: 94:2510-0531. The current AMH test method correlates with the study method with a slope of 0.94. Females at risk of ovarian hyperstimulation syndrome or polycystic ovarian syndrome (PCOS) may exhibit elevated serum AMH concentrations. AMH levels from PCOS patients may be 2 to 5 fold higher than age-appropriate reference interval values. Granulosa cell tumors of the ovary may secrete AMH along with other tumor markers. Elevated AMH is not specific for malignancy, and the assay should not be used exclusively to diagnose or exclude an AMH-secreting ovarian tumor. Performed at: [facility] [address] [place] [id number] Occupational Health Physician: Ian Mitchell MD, Phone: [phone] PERFORMED BY: [place] [address] PATHOLOGIST FAMILY SUPPORT SPECIALIST PARAMJIT CHAN M.D.Performed By: #### A1C WTH eA, TSH3, CBC, T4F, FSH, HCGQNT #### [facility] [address] [place] [address] #### LH, AMH, DHEA, DHEAS #### [facility] ,Basophils [#/volume] in Blood by Automated countOrdered By: Carmen Sidhu on 50-37-6356Msboyxfzr (Bld) [#/Vol]0.0 10*3/uLNormal0.0-0.2FOhioHealth Shelby HospitalComment on above:Result Comment: PERFORMED BY: [place] [address] PATHOLOGIST FAMILY SUPPORT SPECIALIST PARAMJIT CHAN M.D.Performed By: #### A1C WTH eA, TSH3, CBC, T4F, FSH, HCGQNT #### [address] #### LH, AMH, DHEA, DHEAS #### [facility] ,Basophils/100 leukocytes in Blood by Automated countOrdered By: Carmen Sidhu on 20-30-0665Kszdjeipt/100 WBC (Bld)0.3 %Normal.[facility] Comment on above:Performed By: #### A1C WTH eA, TSH3, CBC, T4F, FSH, HCGQNT #### [facility] [address] [place] [address] #### LH, AMH, DHEA, DHEAS #### [facility] ,CBC W Auto Differential panel (Bld)on 88-05-3286Fadujbsmk (Bld) [#/Vol]0 10*3/uL0.0 - 0.2 10*3/uLNOMS HealthcareBasophils/100 WBC Manual cnt (Syn fld)0.3 %.NOMS HealthcareEosinophils (Bld) [#/Vol]0.2 10*3/uL0.0 - 0.45 10*3/uLNOMS HealthcareEosinophils/100 WBC Manual cnt (Syn fld)1.6 %.[facility] Erythrocyte distribution width (RBC) [Ratio]14.2 %11.9 - 15.3 %[facility] Hematocrit (Bld) [Volume fraction]42 %34.0 - 46.4 %[facility] CenterHemoglobin (Bld) [Mass/Vol]14.1 g/dL11.8 - 15.4 g/dLVALLEY VIEW MEDICAL CENTER HealthcareInterpretation and review of laboratory resultsAbnormalVALLEY VIEW MEDICAL CENTER HealthcareLymphocytes (Bld) [#/Vol]2.3 10*3/uL1.00 - 4.8 10*3/uLNOMS HealthcareLymphocytes/100 WBC Manual cnt (Syn fld) 21.4 %.[facility] Science CenterH (RBC) [Entitic mass]31.7 pg24.7 - 34.3 pgSaint Louis University Health Science CenterHC (RBC) [Mass/Vol]33.6 g/dL32.0 - 35.0 g/dLSaint John's Breech Regional Medical CenterMCV (RBC) [Entitic vol]94.2 fL80 - 100 fLVALLEY VIEW MEDICAL CENTER HealthcareMonocytes (Bld) [#/Vol]0.9 10*3/uLHigh0.0 - 0.8 10*3/uLNOMS HealthcareMonocytes+Macrophages/100 WBC Manual cnt (Syn fld)8.8 %.[facility] HealthcareNeutrophils (Bld) [#/Vol]7.3 10*3/uL1.8 - 7.7 10*3/uLNOMS HealthcareNeutrophils/100 WBC Manual cnt (Syn fld)67.9 %.[facility] HealthcareNRBC0.1 /100{WBC}0 - 0.5 /100{WBC}[facility] HealthcarePlatelet mean volume (Bld) [Entitic vol]11.2 fLHigh6.3 - 10.7 fLVALLEY VIEW MEDICAL CENTER HealthcarePlatelets (Bld) [#/Vol]313 10*3/uL150 - 450 10*3/uLNOMS HealthcareRBC LM.HPF (Urine sed) [#/Area]4.46 10*6/uL3.60 - 5.00 10*6/uLNOMS HealthcareWBC (Bld) [#/Vol]10.8 10*3/uL3.8 - 11.6 10*3/uLNOMS HealthcareWBC LM.HPF (Urine sed) [#/Area]10.8 [CFU]/mL3.8 - 11.6 [CFU]/mLNOMS [facility] HospitalNOWA HealthcareChoriogonadotropin.beta subunit [Units/volume] in Serum or PlasmaOrdered By: Carmen Sidhu on 01-19-2025 HCG.beta subunit Qnm[IU]/mLMount St. Mary HospitalComment on above: Approximate Approximate hCG Gestational Age Range (mIU/ml) (weeks)0.2-1 5-50 1-2 50-500 2-3 100-5,000 3-4 500-10,000 4-5 1,000-50,000 5-6 10,000-100,000 6-8 15,000-200,000 8-12 10,000-100,000Complete Blood Count Auto Diffon 01-19-2025 Mean Corpuscular HGB Conc33.6 g/uSFrphdj81.0-35.0The [facility] Comment on above:Performed By: #### A1C WTH eA, TSH3, CBC, T4F, FSH, HCGQNT #### [facility] [address] [place] [address] #### LH, AMH, DHEA, DHEAS #### [facility] ,NRBC%0.1 /100{WBC}Normal0-0.5The [facility] Physician GroupComment on above: Performed By: #### A1C WTH eA, TSH3, CBC, T4F, FSH, HCGQNT #### [facility] [address] [place] [address] [place] #### LH, AMH, DHEA, DHEAS #### [facility] ,White Blood Count10.8 [CFU]/mLNormal3.8-11.6[facility] Comment on above:Performed By: #### A1C WTH eA, TSH3, CBC, T4F, FSH, HCGQNT #### [facility] [address] [place] [address] [place] #### LH, AMH, DHEA, DHEAS #### [facility] ,Dehydroepandrosteroneon 27-08-9818XBDG236 ng/dHBztrtl30-610Qpw [facility] Physician GroupComment on above:Result Comment: This test was developed and its performance characteristics determined by [facility]. It has not been cleared or approved by the Food and Drug Administration. Performed at: [address] [id number] Occupational Health Physician: Casandra Zavala MD, Phone: [phone] PERFORMED BY: [place] [address] PATHOLOGIST FAMILY SUPPORT SPECIALIST PARAMJIT CHAN M.D.Performed By: #### A1C WTH eA, TSH3, CBC, T4F, FSH, HCGQNT #### [address] #### LH, AMH, DHEA, DHEAS #### [facility] ,Dehydroepiandrosterone Sulfateon 92-17-6872Lioieiiovtmhqyxzijtcfb Czybtaj003.0 ug/qKWpqiyb455.0-431.7The [facility] Physician [facility] InfantsComment on above:Result Comment: Performed at: [facility] [id number] Occupational Health Physician: Wilfredo Mercedes PhD, Phone: [phone] By: #### A1C WTH eA, TSH3, CBC, T4F, FSH, HCGQNT #### [address] #### LH, AMH, DHEA, DHEAS #### [facility] ,Eosinophils [#/volume] in Blood by Automated countOrdered By: Carmen Sidhu on 41-83-4327Clhpeipvopv (Bld) [#/Vol]0.2 10*3/uLNormal0.0-0.45[facility] St. Mary HospitalComment on above:Performed By: #### A1C WTH eA, TSH3, CBC, T4F, FSH, HCGQNT #### [address] #### LH, AMH, DHEA, DHEAS #### [facility] ,Eosinophils/100 leukocytes in Blood by Automated countOrdered By: Carmen Sidhu on 00-26-3058Dmjulabiest/100 WBC (Bld)1.6 %Normal.[facility]. Mary HospitalComment on above:Performed By: #### A1C WTH eA, TSH3, CBC, T4F, FSH, HCGQNT #### [address] #### LH, AMH, DHEA, DHEAS #### [facility] ,Erythrocyte distribution width [Ratio] by Automated countOrdered By: Carmen Sidhu on 97-33-8926Nznmrgxpiuf distribution width (RBC) [Ratio]14.2 %Normal 11.9-15.3FOhioHealth Shelby HospitalComment on above:Performed By: #### A1C WTH eA, TSH3, CBC, T4F, FSH, HCGQNT #### [address] #### LH, AMH, DHEA, DHEAS #### [facility] ,Erythrocytes [#/volume] in Blood by Automated countOrdered By: Carmen Sidhu on 88-23-6464UDY (Bld) [#/Vol]4.46 10*6/uLNormal3.60-5.00[facility] St. Mary HospitalComment on above:Performed By: #### A1C WTH eA, TSH3, CBC, T4F, FSH, HCGQNT #### [place] [address] [place] #### LH, AMH, DHEA, DHEAS #### [facility] ,Follicle Stimulating Hormoneon 81-49-4606Tinqlyyq Stimulating Hormone3.6 m[iU]/mLNormalThe [facility] Physician GroupComment on above:Result Comment: FEMALE NORMALS (PREMENOPAUSE) MID-FOLLICULAR PHASE: 3.9-8.8 mIU/mL MID-CYCLE PEAK: 4.5-22.5 mIU/mL MID-LUTEAL PHASE: 1.8-5.1 mIU/mL FEMALE NORMALS (POSTMENOPAUSE): 16.7-113.6 mIU/mL MALE NORMALS: 1.3-19.3 mIU/mLPerformed By: #### A1C WTH eA, TSH3, CBC, T4F, FSH, HCGQNT #### [address] #### LH, AMH, DHEA, DHEAS #### [facility] ,Follitropin [Units/volume] in Serum or PlasmaOrdered By: Carmen Sidhu on 22-70-3411Rmutwehvisf Qn3.6 m[IU]/mLMount St. Mary HospitalComment on above:FEMALE NORMALS (PREMENOPAUSE) MID-FOLLICULAR PHASE: 3.9-8.8 mIU/mL MID- CYCLE PEAK: 4.5-22.5 mIU/mL MID-LUTEAL PHASE: 1.8-5.1 mIU/mLFEMALE NORMALS (POSTMENOPAUSE): 16.7-113.6 mIU/mLMALE NORMALS: 1.3-19.3 mIU/mLHCG,Quantitative on 46-60-5017BKJ,Quantitative<0.60NoAngel Medical Center Physician GroupComment on above:Result Comment: Approximate Approximate hCG Gestational Age Range (mIU/ml) (weeks) 0.2-1 5-50 1-2 50-500 2-3 100-5,000 3-4 500-10,000 4-5 1,000-50,000 5-6 10,000-100,000 6-8 15,000-200,000 8-12 10,000-100,000 PERFORMED BY: [place] [address] PATHOLOGIST FAMILY SUPPORT SPECIALIST PARAMJIT CHAN M.D.Performed By: #### A1C WTH eA, TSH3, CBC, T4F, FSH, HCGQNT #### [address] #### LH, AMH, DHEA, DHEAS #### [facility] ,Hematocrit [Volume Fraction] of Blood by Automated countOrdered By: Carmen Sidhu on 69-20-5796Brqjsxatnv (Bld) [Volume fraction]42.0 %Jahegg91.0-46.4FOhioHealth Shelby HospitalComment on above:Performed By: #### A1C WTH eA, TSH3, CBC, T4F, FSH, HCGQNT #### [facility] [address] [place] [address] #### LH, AMH, DHEA, DHEAS #### [facility] ,Hemoglobin [Mass/volume] in BloodOrdered By: Carmen Sidhu on 01-19-2025 Hemoglobin (Bld) [Mass/Vol]14.1 g/zFWjxjbw77.8-15.4FOhioHealth Shelby HospitalComment on above:Performed By: #### A1C WTH eA, TSH3, CBC, T4F, FSH, HCGQNT #### [address] #### LH, AMH, DHEA, DHEAS #### [facility] ,Leukocytes [#/volume] corrected for nucleated erythrocytes in Blood by Automated counOrdered By: Carmen Sidhu on 61-04-8615PBX corrected for nucl RBC Auto (Bld) [#/Vol]10.8 10*3/uL3.8-11.6FOhioHealth Shelby Hospital Leukocytes [#/volume] in Blood by Automated countOrdered By: Carmen Sidhu on 91-39-6667PNE (Bld) [#/Vol]10.8 10*3/uLNormal3.8-11.6FOhioHealth Shelby HospitalComment on above:Performed By: #### A1C WTH eA, TSH3, CBC, T4F, FSH, HCGQNT #### [facility] [address] [place] [address] [place] #### LH, AMH, DHEA, DHEAS #### [facility] ,Luteinizing Hormoneon 65-59-7532Niabsvugqof Hormone3.3 m[iU]/mLNormal.The [facility] Physician GroupComment on above:Result Comment: Adult Female Range Follicular phase 2.4 - 12.6 Ovulation phase 14.0 - 95.6 Luteal phase 1.0 - 11.4 Postmenopausal 7.7 - 58.5 Performed at: - [facility] [address] [id number] Occupational Health Physician: Wilferdo Mercedes PhD, Phone: [phone] By: #### A1C WTH eA, TSH3, CBC, T4F, FSH, HCGQNT #### [facility] [address] [place] [address] #### LH, AMH, DHEA, DHEAS #### [facility] ,Lymphocytes [#/volume] in Blood by Automated countOrdered By: Carmen Sidhu on 47-57-5311Skixsikeyuq (Bld) [#/Vol]2.3 10*3/uLNormal1.00-4.8Mount St. Mary HospitalComment on above:Performed By: #### A1C WTH eA, TSH3, CBC, T4F, FSH, HCGQNT #### [place] [address] [place] #### LH, AMH, DHEA, DHEAS #### [facility] ,Lymphocytes/100 leukocytes in Blood by Automated countOrdered By: Carmen Sidhu on 69-29-9897Vpbuoqrjmzd/100 WBC (Bld)21.4 %Normal.Mount St. Mary HospitalComment on above:Performed By: #### A1C WTH eA, TSH3, CBC, T4F, FSH, HCGQNT #### [place] [address] [place] #### LH, AMH, DHEA, DHEAS #### [facility] ,MCH [Entitic mass] by Automated countOrdered By: Carmen Sidhu on 04-10-8873ODU (RBC) [Entitic mass]31.7 uzPthqzq65.7-34.3FOhioHealth Shelby Hospital Comment on above:Performed By: #### A1C WTH eA, TSH3, CBC, T4F, FSH, HCGQNT #### [address] [place] [address] [place] #### LH, AMH, DHEA, DHEAS #### [facility] ,[facility] Auto (RBC) [Mass/Vol]Ordered By: Carmen Sidhu on 32-66-3654NZBN (RBC) [Mass/Vol]33.6 g/dL32.0-35.0Mount St. Mary HospitalMCV [Entitic volume] by Automated countOrdered By: Carmen Sidhu on 15-18-1786LWR (RBC) [Entitic vol]94.2 sLJxsczr14-080EwgaiibwoMount [address]. Mary HospitalComment on above:Performed By: #### A1C WTH eA, TSH3, CBC, T4F, FSH, HCGQNT #### [facility] [address] [place] [address] #### LH, AMH, DHEA, DHEAS #### [facility] ,Monocytes [#/volume] in Blood by Automated countOrdered By: Carmen Sidhu on 09-65-5484Sbpdegpty (Bld) [#/Vol]0.9 10*3/uLHigh0.0-0.8Mount St. Mary HospitalComment on above:Performed By: #### A1C WTH eA, TSH3, CBC, T4F, FSH, HCGQNT #### [address] #### LH, AMH, DHEA, DHEAS #### [facility] ,Monocytes/100 leukocytes in Blood by Automated countOrdered By: Carmen Sidhu on 53-82-0803Xgiuscseg/100 WBC (Bld)8.8 %Normal.[facility] Comment on above:Performed By: #### A1C WTH eA, TSH3, CBC, T4F, FSH, HCGQNT #### [facility] [address] [place] [address] #### LH, AMH, DHEA, DHEAS #### [facility] ,Neutrophils [#/volume] in Blood by Automated countOrdered By: Carmen Sidhu on 27-05-6054Bfnypmcdxjj (Bld) [#/Vol]7.3 10*3/uLNormal1.8-7.7FOhioHealth Shelby HospitalComment on above:Performed By: #### A1C WTH eA, TSH3, CBC, T4F, FSH, HCGQNT #### [facility] [address] [place] [address] [place] #### LH, AMH, DHEA, DHEAS #### [facility] ,Neutrophils/100 leukocytes in Blood by Automated countOrdered By: Carmen Sidhu on 57-18-9085Xkfhmnahqex/100 WBC (Bld)67.9 %Normal.[facility] St. Mary HospitalComment on above:Performed By: #### A1C WTH eA, TSH3, CBC, T4F, FSH, HCGQNT #### [facility] [address] [place] [address] #### LH, AMH, DHEA, DHEAS #### [facility] ,Nucleated erythrocytes [Presence] in Blood by Automated countOrdered By: Carmen Sidhu on 35-02-0181Gzqfxavlq RBC Auto Ql (Bld)0.1 /100{WBC}0-0.5FOhioHealth Shelby HospitalPlatelet mean volume [Entitic volume] in Blood by Automated countOrdered By: Carmen Sidhu on 62-70-0767Vtdrnfmz mean volume (Bld) [Entitic vol]11.2 fLHigh6.3-10.7FOhioHealth Shelby HospitalComment on above:Performed By: #### A1C WTH eA, TSH3, CBC, T4F, FSH, HCGQNT #### [facility] [address] [place] [address] [place] #### LH, AMH, DHEA, DHEAS #### [facility] ,Platelets [#/volume] in Blood by Automated countOrdered By: Carmen Sidhu on 06-28-6168Fubvrsodo (Bld) [#/Vol]313 10*3/xTMjwzuc262-106CssrvbrbsMount St. Mary HospitalComment on above:Performed By: #### A1C WTH eA, TSH3, CBC, T4F, FSH, HCGQNT #### [facility] [address] [place] [address] #### LH, AMH, DHEA, DHEAS #### [facility] ,Thyrotropin [Units/volume] in Serum or PlasmaOrdered By: Carmen Sidhu on 44-26-9939LAL Qn1.51 m[IU]/LNormal0.45-5.33[facility] Comment on above:Performed By: #### A1C WTH eA, TSH3, CBC, T4F, FSH, HCGQNT #### [facility] [address] [place] [address] #### LH, AMH, DHEA, DHEAS #### [facility] ,Thyroxine (T4) free [Mass/volume] in Serum or PlasmaOrdered By: Carmen Sidhu on 05-95-2834Ccuj T4 [Mass/Vol]0.82 ng/dLNormal0.61-1.12Mount St. Mary HospitalComment on above:Performed By: #### A1C WT eA, TSH3, CBC, T4F, FSH, HCGQNT #### [address] #### LH, AMH, DHEA, DHEAS #### [facility] ,POCT NURSING URINE MACROSCOPIC UAon 96-49-4322BSDABKEOD NURNegativeNormal NegativeCorey HospitalComment on above:Performed By: #### NUM #### [facility] ([facility]) [address] [place] [address] VIRBLOOD/HGB NURTraceAbnormalNegativeCorey HospitalComment on above:Performed By: #### NUM #### [facility] ([address] [address] VIRGLUCOSE NURNegativeNormalNegativeCorey Hospital Comment on above:Performed By: #### NUM #### [facility] ([address] [place] [address] VIRKETONES NURNegativeNormalNegPremier Health Atrium Medical Center Comment on above:Performed By: #### NUM #### [facility] ([address] [place] [address] VIRLEUKOCYTE ESTERASE NURSmallAbnormalNegativeCorey HospitalComment on above:Performed By: #### NUM #### [facility] ([address] [address] VIRNITRITE NURNegativeNormalNegPremier Health Atrium Medical Center Comment on above:Performed By: #### NUM #### [facility] ([address] [address] VIRPH NUR5.6Tjdavh7.0, 6.0, 6.5, 7.0, 7.5, 8.0, 8.5, 5.5 Corey HospitalComment on above:Performed By: #### NUM #### [address] [address] VIRPROTEIN NURNegativeNormalNegPremier Health Atrium Medical Center Comment on above:Performed By: #### NUM #### [address] [place] [address] VIRSPECIFIC GRAVITY STIVEN>=1.138Qesauawz7.010, 1.015, 1.020, 1.025Corey HospitalComment on above:Performed By: #### NUM #### [address] [place] [address] VIRUROBILINOGEN NUR0.2 E.U./dLFairfield Medical Center Comment on above:Performed By: #### NUM #### [address] [address] VIRPOCT , URINE (NUCG)on 60-27-1718Mdhn HCG ( test) Ql (U)NegativeNormalNegativeCorey HospitalComment on above:Performed By: #### NUCG #### [facility] ([facility]) [address] [place] [address]. [place] [address] VIRXR ABDOMEN COMP DECUB ERECTon [id number] ABDOMEN COMP DECUB ERECTXR ABDOMEN COMP DECUB ERECT EXAM: XR ABDOMEN COMP DECUB ERECT INDICATION: Constipation COMPARISON: None TECHNIQUE: 5 views of the abdomen were obtained FINDINGS/IMPRESSION: Levoconvex curvature of the thoracolumbar spine. Nonobstructive bowel gas pattern. Moderate fecal burden seen throughout the colon but most pronounced along the right hemicolon. Finalized by Bubba Bower on 12/02/2024 5:52 PMNormalCorey Hospital X-ray reportOrdered By: Mayur Marie on 07-27-9148Gzgyw reportUNIVERSITY H[facility]ITALS [facility] [place] [address] [place] [address] XRay Report Signed Patient: Tanya Morales MR#: [id number] : 2000 Acct:[id number] Age/Sex: 23 / F ADM Date: 5 Loc: XDUCLY Room: Type: [facility] Attending Dr: Maira Stoddard APRN Copies to: Maira Stoddard APRN~ Ordering Provider: Maira Stoddard APRN Date of Service: 08/26/24 XR/XR ankle LT min 3V*: LEFT ANKLE PAIN LEFT ANKLE - 3 views CLINICAL HISTORY: Fall yesterday. Left ankle pain and swelling. COMPARISON: None FINDINGS: Soft tissue swelling is noted. Ankle mortise appears intact. No acute bony process is seen. Plantarspurring. XR/XR ankle LT min 3V* IMPRESSION: SOFT TISSUE SWELLING WITHOUT ACUTE BONY PROCESS. Impression dictated by: Mayur Marie Jr. D.ORobert08/26/2024 2:43 PM Dictation Location: [place] [address] Transcribed By: LILY 08/26/24 1443 Dictated By: Mayur Marie Jr, DO 08/26/24 144 Signed By: 08/26/[address] Mary HospitalXR ankle LT min 3V*on 39-38-7939YW ankle LT min 3V*[facility] [address] [place] [address] [place] [address] XRay Report Signed Patient: Tanya Morales MR#: [id number] : 2000 Acct:[id number] Age/Sex: 23 / F ADM Date: 08/26/24 Loc: XDUCLY Room: Type: [facility] Attending Dr: Maira Stoddard APRN Copies to: Maira Stoddard APRN Ordering Provider: Maira Stoddard APRN Date of Service: 08/26/24 XR/XR ankle LT min 3V*: LEFT ANKLE PAIN LEFT ANKLE - 3 views CLINICAL HISTORY: Fall yesterday. Left ankle pain and swelling. COMPARISON: None FINDINGS: Soft tissue swelling is noted. Ankle mortise appears intact. No acute bony process is seen. Plantar spurring. XR/XR ankle LT min 3V* IMPRESSION: SOFT TISSUE SWELLING WITHOUT ACUTE BONY PROCESS. Impression dictated by: Mayur Marie Jr., DRobertORobert08/26/2024 2:43 PM Dictation Location: [place] [address] Transcribed By: [facility] 08/26/241442 Dictated By: Mayur Marie Jr, DO 08/26/24 144 Signed By: 08/26/[address] [place] [address] Physician GroupUrine Cultureon 04-29-2024 Bacteria identified Cx Nom (U)>100,000 colonies/ml mixed bacterial skin contaminants 2 Days PERFORMED BY: [place] [address] PATHOLOGIST FAMILY SUPPORT SPECIALIST JASON TALAVERA M.D.[facility] Physician [facility] Women And InfantsComment on above:Performed By: #### A1C WTH eA, TSH3, CBC, T4F, FSH, HCGQNT #### [place] [address] [place] #### LH, AMH, DHEA, DHEAS #### [facility] ,US renal BIon 37-60-1988WI renal [facility] [address] [place] [place] [address] Ultrasound Report Signed Patient: Tanya Morales MR#: [id number] : 2000 Acct:[id number] Age/Sex: 23 / F ADM Date: 02/12/24 Loc: Room: Type: [facility] Attending Dr: Shannon Anna APRN, NP-C Ordering Provider: Shannon Anna APRN, CNP Date of Service: 02/12/24 US/US renal BI: R10.9 - Unspecified abdominal pain Copies to: Shannon Anna APRN, CNP Bilateral Renal Ultrasound HISTORY: History kidney stones. Bilateral flank pain COMPARISON: None RIGHT kidney measures 10.6 cm. LEFT kidney measures 11.5 cm. Hydronephrosis: None RENAL STONE: RIGHT nephrolithiasis measures up to 5 mm. RENAL LESIONS: No renal lesion identified. URINARY BLADDER: Urinary jets not visualized REPRODUCTIVE STRUCTURES Not assessed US/US renal BI IMPRESSION : No hydronephrosis. RIGHT nephrolithiasis Impression dictated by: Palomo Florence M.D.02/12/2024 6:47 PM Dictation Location: [place] [address] Tech: Breann Easton Transcribed By: [facility] 02/12/241846 Dictated By: Palomo Florence DO 02/12/241845 Signed By: 02/12/[address] [place] [address] Physician Group Vital Signs Date TimeVital SignValuePerforming HwmejxkezFnyamkwj10-70-0514 09:31-0400Body mass index (BMI) [Ratio]39.51 kg/e5PlhqrfsjCammy Cruz INCINERATOR OPERATOR Work Phone: [facility] CenterMgpbsipedn95-81-7510 09:31-0400Body wmfdha332.48 kgCammy Cruz INCINERATOR OPERATOR Work Phone: noSaint Louis University Health Science CenterQzzqohtwnm60-77-2872 09:31-0400Diastolic blood kjxirmbq91 mm[Hg]Cammy Cruz NP Work Phone: [phone])[address] [place], [place] [address]10-29-2025 09:31-0400Systolic blood dupsigje091 mm[Hg]Cammy Anthony INCINERATOR OPERATOR Work Phone: 1(159)[facility] [place], [place] [address]Fishdrugla11-09-1194 11:00-0400Body mass index (BMI) [Ratio]39.61 kg/u7AvqrxWMCHealth09-26-2025 11:00-0400Body weight 128.82 kgWMCHealth09-26-2025 11:00-0400Diastolic blood cjmefdjr23 mm[Hg][facility]09-26-2025 11:00-0400Systolic blood mm[Hg][facility]08-13-2025 14:20-0400Body vmioof819.3 cmCorey Nahum DO Work Phone: [phone] [place], [place] [address]Ravybkyjgu57-86-2467 14:20-0400Body mass index (BMI) [Ratio]39.05 kg/w2Qjwpu Nahum DO Work Phone: 1(244)[facility] [place], [place] [address]Fttdakmzjc99-85-1071 14:20-0400Body ymwgyt271.01 kgCorey Nahum DO Work Phone: 1(661)[facility] [place], [place] [address]Doqloeqjlq59-79-9264 14:20-0400Diastolic blood dbqwwdoi99 mm[Hg]Carmen Nahum DO Work Phone: 1([phone])[facility] [place], [place] [address]Vueolajmkk33-49-8860 14:20-0400Systolic blood avdltrkz042 mm[Hg]Carmen Nahum DO Work Phone: 1(361)[facility] [place], [place] [address]Beuvtcwdrc62-95-8346 13:04-0400Diastolic blood eclkzuyn59 mm[Hg]Carmen Nahum DO Work Phone: 1(375)[facility] [place], [place] [address]Vwpajlvcuq62-13-8242 13:04-0400Systolic blood wkamtnio924 mm[Hg]Carmen Nahum DO Work Phone: 1(972)[facility] [place], [place] [address]Ikrelsones19-75-2007 13:00-0400Body dpiery717.3 cmCorey Nahum DO Work Phone: 1([phone] [place], [place] [address]Qgyckzqpzu21-26-7491 13:00-0400Body mass index (BMI) [Ratio]39.54 kg/r5Oufjk Nahum DO Work Phone: [facility] CenterOhsvhsmegr52-49-2160 13:00-0400Body axrvtk378.59 kgCorey Nahum DO Work Phone: [facility] CenterRrqiajlecf51-04-3251 14:19-0500Body txigib007.34 cmPHYSICIAN [facility]02-27-2025 14:19-0500Body mass index (BMI) [Ratio]36.9 kg/j1XWXCYJRIF [facility]02-27-2025 14:19-0500Body uwzallkptpc83.5 [degF]PHYSICIAN NO [facility]02-27-2025 14:19-0500Body ogqdef154.2 kg PHYSICIAN [facility]02-27-2025 14:19-0500 Diastolic blood mm[Hg]PHYSICIAN NO [facility]02-27-2025 14:19-0500Heart diwc065 /minPHYSICIAN [facility]02-27-2025 14:19-0500Respiratory rate16 /minPHYSICIAN [facility]02-27-2025 14:19-4202FbZ0% (BldA) [Mass fraction]98 %PHYSICIAN [facility]02-27-2025 14:19-0500Systolic blood yafrqrio452 mm[Hg]PHYSICIAN NO [facility]08-12-2024 13:17-0400Body .34 Bhupinder Anna Work Phone: [facility]08-12-2024 13:17-0400 Body mass index (BMI) [Ratio]38.5 kg/m2ALEXEY Anna Work Phone: [facility]08-12-2024 13:17-0400 Body .19 kgALEXEY Anna Work Phone: [facility]08-12-2024 13:17-0400 Diastolic blood hvmhoxud24 mm[Hg]ALEXEY Ortega Shoshana Work Phone: [facility]08-12-2024 13:17-0400 Heart rate93 /minAPRMonica Ortega Mallyr Work Phone: [facility]08-12-2024 13:17-0400 SaO2% (BldA) [Mass fraction]99 %SECONDS GRADERMonica Ortega Mallyr Work Phone: [facility]08-12-2024 13:040 Systolic blood ynyrdywr344 mm[Hg]SECONDS GRADERMonica Ortega Mallyr Work Phone: [facility] Encounters Encounter DateEncounter TypeCare ProviderFacilityStart: 04-27-2025 End: 16-26-1119Eaymjv flowsheetKromairaa Anthony INCINERATOR OPERATOR Work Phone: [facility] OBGYNStart: 04-27-2025 End: 22-64-5355Uvoxyi flowsheetKristina Anthony INCINERATOR OPERATOR Work Phone: [facility]BGYNStart: 04-27-2025 End: 55-34-8455Mkcnvvaz flow sheetKristina Anthony INCINERATOR OPERATOR Work Phone: [facility] OBGYNComment on above:Second trimester ([facility]); 14 weeks gestation of ([facility])Start: 04-27-2025 End: 43-49-2576gcdmmuldbaJEQIQXOQ EBERLYNot AvailableStart: 03-25-2025 End: 71-99-9983wzhkgqmzteVsxtt Nurse [facility] Bcp ObNOMS Seymour OBGYNComment on above:GA: 7n4rAllnh: 02-16-2025 End: 30-21-1353ygywbypbqjMDTXV FAZIONot AvailableStart: 02-09-2025 End: 56-52-1188Uzkoul outpatient visit 15 minutesCorey Nahum DO Work Phone: [facility] OBGYNComment on above:Encounter to discuss test results; Menorrhagia with regular cycle; Insulin resistanceStart: 02-09-2025 End: 02-70-9726Mnaypz flowsheetCorey Nahum DO Work Phone: [facility]BGYNStart: 02-09-2025 End: 58-84-7555Xubdob flowsheetCorey Nahum DO Work Phone: [facility] OBGYNStart: 02-09-2025 End: 97-11-5979ojzcdthskoMJZVG FAZIONot AvailableStart: 01-19-2025 End: 88-34-8042Skyoafbi Result EncounterCorey Nahum DO Work Phone: noMS External Department UnsolicitedStart: 01-19-2025 End: 80-67-9802Lctsicsn Result EncounterCorey Nahum DO Work Phone: noms External Department UnsolicitedStart: 01-19-2025 End: 64-59-1745Bmcbxxz encounter procedureCorey Nahum-Lab [facility] [place] Work Phone: Start: 01-19-2025 End: 64-85-2912gqaerqtsgnVRYAWHONN NO [facility] Work Phone: Start: 01-12-2025 End: 19-47-7331Viakkt flowsheetCorey Nahum DO Work Phone: [facility] OBStart: 01-12-2025 End: 32-03-4730Qlpbav flowsheetCorey Nahum DO Work Phone: [facility] OBStart: 01-12-2025 End: 42-71-2579Bpyliqun flow sheetCorey Nahum DO Work Phone: [facility] OBComment on above:Menorrhagia with regular cycle; Dysmenorrhea; PCOS (polycystic ovarian syndrome)Start: 01-12-2025 End: 11-66-9731dsypjettoiKPIRE FAZIONot AvailableStart: 36-47-1359Ddg-patient / Non-visitCatherine Hamzah GEODESIST-FPG [facility] Work Phone: Start: 12-02-2024 End: 23-69-8716Wcizhqjyw department patient visitSHANNON Hartmann [facility] Community Campustart: 08-26-2024 End: 95-87-8178Noyovui encounter procedurePHYSICIAN NO [facility] Work Phone: Start: 08-26-2024 End: 26-79-6126ihqibymsepVOFGZJAVR NO [facility] Work Phone: Start: 04-29-2024 End: 37-86-7123riejdhksmvNABS Jennifer Rohrbacher Work Phone: [facility] Work Phone: Start: 04-29-2024 End: 84-39-0999Rroseznx ReferredAPRMonica Anna Work Phone: [facility]-Lab [facility] [place] Work Phone: Start: 60-57-7417mjgexjsxbjQzdrgkan:EU BellevueStart: 02-12-2024 End: 00-78-6082Xwjrcrd encounter procedureAPRMonica Anna Work Phone: [facility]-Ultrasound [facility] [place] Work Phone: Start: 02-12-2024 End: 21-92-1876lwtvnytgjvRRMK Jennifer Rohrbacher Work Phone: [facility] Work Phone: Start: 02-09-2024 End: 22-41-1264Wrzyouz encounter procedureAPRMonica Anna Work Phone: [facility] Work Phone: Start: 07-12-2022 End: 53-34-1922fszdmroqpwVQ NONE LISTED REQUESTFacility:H1 Procedures DateProcedureProcedure DetailPerforming ClinicianStart: 46-70-0375Dkxnw dip stick/tablet rgnt non-auto w/o micrscAc Cruz NP Work Phone: Start: 52-86-4239Otqei dip stick/tablet rgnt non-auto w/o micrscpCorey Nahum DO Work Phone: Start: 49-18-4906Aeynbvkc blood count with white cell differential, automatedCorey Nahum DO Work Phone: Start: 26-40-5822Njbtfnyamj glycosylated o7zDzyym Nahum DO Work Phone: Start: 19-11-6349H-ray of left anklePHYSICIAN NO FAMILYStart: 86-17-7966Tidhulkfelsjgbe of bilateral kidneysAPRN Shannon Shoshana Work Phone: Plan of Treatment DateCare ActivityDetailAuthorStart: 05-25-2025 End: 46-13-2271Vtagyfa encounter tbasckxyr05/26/2025 2:10 PM EST Routine [facility] [address] [place], [id number] Carmen Sidhu DO [address] [place] [address] [facility] OBGYNStart: 04-27-2025 End: 57-74-6248Gplxpsd encounter yacfkosyq36/29/2025 9:20 AM EDT Routine [facility] LINDN [address] [place], [id number] Cammy Cruz NP [address] [place] [address] Valeria RAZA Comment on above:ArrivedStart: 04-26-2025 End: 75-66-5338Kxutoqe encounter pzqpuodvq18/28/2025 11:40 AM EDT Routine [facility] [address] [place] [address] Carmen Sidhu DO [address] [place] [address] NOMDevonte [place] OBGYNStart: 03-25-2025 End: 50-87-4260EEJ/RhABO/Rh Lab Routine Missed menses , unspecified gestational age ([facility]) Expected: 03/25/2025 (Approximate), Expires: 03/25/2026NOWA HealthcareComment on above:Expected: 03/25/2025 (Approximate), Expires: 03/25/2026Start: 03-25-2025 End: 88-59-8733Zlbgg type and Indirect antibody screen panel - BloodType and screen Lab Routine Missed menses , unspecified gestational age ([facility]) Expected: 03/25/2025 (Approximate), Expires: 03/25/2026[facility] Work Phone: comment on above:Expected: 03/25/2025 (Approximate), Expires: 03/25/2026Start: 03-25-2025 End: 34-20-4967Azjvc of abuse panel - Urine by Screen methodRapid drug screen, urine Lab Routine , unspecified gestational age ([facility]) Encounter for supervision of normal first in first trimester ([facility]) Expected: 03/25/2025 (Approximate), Expires: 03/25/2026NOWA HealthcareComment on above: Expected: 03/25/2025 (Approximate), Expires: 03/25/2026Start: 09-12-9861VWJKE-19 Vaccine ( season)COVID-19 Vaccine ( season)[facility] HealthcareStart: 71-06-7533Ryafgbrxd vaccinationInfluenza Vaccine (#1)[facility] HealthcareStart: 02-16-2025 End: 77-33-8858Lsjsucdvsbtq / ancillary services ipfryjoluv52/20/2025 9:00 AM EDT Ancillary Procedure [facility] [address] [place] [address] KAKH [facility]te OBGYNStart: 02-09-2025 End: 32-58-0589Ogflfyz encounter procedureNOMS BCP OBComment on above:Arrived Start: 02-08-2025 End: 64-63-4932Oozltlwcugal / ancillary services gehuochocg68/12/2025 2:30 PM EDT Ancillary Procedure [facility] [address] [place] [address] ELIE [facility] OBGYNStart: 01-26-2025 End: 23-92-6017Pkkabjbsmcak / ancillary services glqsjftzae39/30/2025 2:30 PM EDT Ancillary Procedure [facility] OB [address] [place] [address] QTUC [facility] OBStart: 79-41-8545Ddpuzpucrosuztqxxkmqdn measurementBellevue Hospitaltart: 01-19-2025 Dehydroepiandrosterone sulfate levelBellevue Hospitaltart: 03-23-4819MobulknrrBellevue Hospitaltart: 01-12-2025 End: 52-10-2642Ygkrywkftmauh hormone (AMH)Antimullerian hormone (AMH) Lab Routine Menorrhagia with regular cycle Dysmenorrhea Expected: 01/12/2025 (Approximate), Expires: 01/12/2026NOWA HealthcareComment on above:Expected: 01/12/2025 (Approximate), Expires: 01/12/2026Start: 01-12-2025 End: 46-47-1510OPRCTVSR Lab Routine Menorrhagia with regular cycle Dysmenorrhea PCOS (polycystic ovarian syndrome) Expected: 01/12/2025 (Approximate), Expires: 01/12/2026NOMS HealthcareComment on above:Expected: 01/12/2025 (Approximate), Expires: 01/12/2026Start: 01-12-2025 End: 08-23-2592TT PelvisUS Pelvis w/ TV Imaging Routine Menorrhagia with regular cycle Dysmenorrhea PCOS (polycystic ovarian syndrome) Expected: 01/12/2025, Expires: 01/12/2026NOW[facility] HealthcareComment on above:Expected: 01/12/2025, Expires: 01/12/2026Start: 01-12-2025 End: 35-12-9066Yimsbyv encounter pdfhttxfu15/16/2025 1:00 PM EDT Office Visit [facility] [address] [place] [id number] Carmen Sidhu, DO [address] [place] [address] ArrivedNOSAN [facility] OBComment on above:ArrivedStart: 51-60-4731Kafnmmwk identified in Urine by CultureUrine CultureBellevue Hospitaltart: 73-02-5656Uvbnojfwi B Vaccines (1 of 3 - 19+ 3-dose series)Hepatitis B Vaccines (1 of 3 - 19+ 3-dose series)[facility] HealthcareStart: 14-78-3760Oenindtbambyu B Vaccine (1 of 2 - Standard)Meningococcal B Vaccine (1 of 2 - Standard)[facility] HealthcareStart: 01-07-0418EKE Vaccines (1 - 3-dose series) HPV Vaccines (1 - 3-dose series)[facility] HealthcareStart: 53-31-2316Pubdrwz of varicella vaccinationVaricella Vaccines (1 of 2 - 13+ 2-dose series)[facility] HealthcareStart: 41-00-4430TRgD/Tdap/Td Vaccines (1 - Tdap)DTaP/Tdap/Td Vaccines (1 - Tdap)[facility] HealthcareStart: 06-52-0802RRL Vaccines (1 of 1 - Standard series)MMR Vaccines (1 of 1 - Standard series)[facility] HealthcareBacteria identified in Urine by CultureUrine culture Microbiology Routine Missed menses Ordered: 03/25/2025NOWA HealthcareComment on above:Ordered: 5CBC W Auto Differential panel - BloodCBC and differential Lab Routine Menorrhagia with regular cycle Dysmenorrhea PCOS (polycystic ovarian syndrome) Ordered: 01/12/2025NOWA HealthcareComment on above:Ordered: 5CBC W Auto Differential panel - BloodCBC and differential Lab Routine Missed menses , unspecified gestational age ([facility] [facility]) Ordered: 03/25/2025[facility] HealthcareComment on above:Ordered: 03/25/20251291INLY-vqaluwnEFQF-anxsuhm Lab Routine Menorrhagia with regular cycle Dysmenorrhea PCOS (polycystic ovarian syndrome) Ordered: 01/12/2025[facility] HealthcareComment on above:Ordered: 01/12/2025 Follicle stimulating hormoneFollicle stimulating hormone Lab Routine Menorrhagia with regular cycle Dysmenorrhea PCOS (polycystic ovarian syndrome) Ordered: 01/12/2025[facility] HealthcareComment on above:Ordered: 01/12/2025Glucose measurement estimated from glycated hemoglobinMount St. Mary HospitalhCG, quantitative, pregnancyhCG, quantitative, Lab Routine Menorrhagia with regular cycle Dysmenorrhea PCOS (polycystic ovarian syndrome) Ordered: 01/12/2025[facility] Healthcare Work Phone: comment on above:Ordered: 01/12/2025Hemoglobin A1c/Hemoglobin.total in BloodHemoglobin A1c Lab Routine Menorrhagia with regular cycle Dysmenorrhea Ordered: 01/12/2025[facility] HealthcareComment on above:Ordered: 01/12/2025Hemoglobin A1c/Hemoglobin.total in BloodMount St. Mary HospitalHemoglobin A1c/Hemoglobin.total in BloodHemoglobin A1c Lab Routine Missed menses , unspecified gestational age ([facility]) Ordered: 03/25/2025[facility] HealthcareComment on above:Ordered: 03/25/2025Hepatitis B virus surface Ag [Presence] in Serum or Plasma by ImmunoassayHepatitis B surface antigen Lab Routine Missed menses , unspecified gestational age ([facility]) Ordered: 03/25/2025[facility] HealthcareComment on above:Ordered: 03/25/2025Hepatitis C virus Ab [Presence] in Serum or Plasma by ImmunoassayHepatitis C antibody Lab Routine Missed menses , unspecified gestational age ([facility]) Ordered: 03/25/2025[facility] HealthcareComment on above:Ordered: 03/25/2025HIV-1/HIV-2 antigen/antibody combination immunoassayHIV-1 and HIV-2 antibodies Lab Routine Missed menses , unspecified gestational age ([facility]) Ordered: 03/25/2025[facility] HealthcareComment on above:Ordered: 03/25/2025Luteinizing hormone Luteinizing hormone Lab Routine Menorrhagia with regular cycle Dysmenorrhea PCOS (polycystic ovarian syndrome) Ordered: 01/12/2025[facility] HealthcareComment on above:Ordered: 01/12/2025Luteinizing hormoneLuteinizing hormone Lab Routine 01/19/2025 12:40 PM [facility] Healthcare Work Phone: Lutropin [Units/volume] in Serum or [facility] SystemMullerian inhibiting substance [Mass/volume] in Serum or [facility] Health SystemReagin Ab [Presence] in Serum by RPRRPR Lab Routine Missed menses , unspecified gestational age ([facility]) Ordered: 03/25/2025[facility] HealthcareComment on above:Ordered: 03/25/2025Rubella antibody, IgGRubella antibody, IgG Lab Routine Missed menses , unspecified gestational age ([facility]) Ordered: 03/25/2025[facility] HealthcareComment on above:Ordered: 03/25/2025Thyrotropin [Units/volume] in Serum or PlasmaTSH Lab Routine Menorrhagia with regular cycle Dysmenorrhea PCOS (polycystic ovarian syndrome) Ordered: 01/12/2025[facility] HealthcareComment on above:Ordered: 01/12/2025 Thyrotropin [Units/volume] in Serum or PlasmaTSH Lab Routine 01/19/2025 12:40 PM [facility] Healthcare Work Phone: Thyroxine (T4) free [Mass/volume] in Serum or Plasma T4, free Lab Routine Menorrhagia with regular cycle Dysmenorrhea PCOS (polycystic ovarian syndrome)Ordered: 01/12/2025[facility] HealthcareComment on above: Ordered: 01/12/2025[facility]rine [facility] left GE 3 [facility] Immunizations Immunization DateImmunizationNotesCare EtpfsjcbIyxwkaum60-13-9243zbhxjskkm virus vaccine, unspecified formulationCorey Nahum DO Work Phone: [facility] Payers DatePayer CategoryPayerPolicy [id number] [id number] 2.[id number] 2.0.1.704442.3.57[id number] 2.0.1.601311.3.57[id number] 2.0.1.631271.3.57[id number] 2.0.1.593194.3.57[id number] 2.0.1.057440.3.57[id number] 2.0.1.099131.3.57[id number] 2.0.1.442842.3.57[id number] 2.840.1.903739.3.579.2.727713-32-6805Hdtx-[id number] 2.840.1.8[id number] 2.16.840.1.874088.3.579.2.531 [id number] 2.16.840.1.602721.3.579.2.531 Social History DateTypeDetailFacilityStart: 02-09-2024 End: 64-40-1203Bbzbxyy smoking status NHISSmoker (finding)[facility]: 84-00-9889Qmf Assigned At BirthFeKeenan Private Hospitaltart: 08-26-2024 End: 34-17-9513QiuWjctaa (finding)[facility] HospitalT[facility] smoking status NHISTobacco smoking consumption unknownVAL[facility] HealthcareStart: 41-17-0421Qkg assigned at birthNot on [facility] HospitalStart: 29-84-6819Lxfdyx identityIdentifies as female gender (finding)[facility] HealthcareSexual orientation Not on [facility] Hospitaltart: 01-25-8342Dqvnskc smoking status NHISSmokes tobacco daily (finding)[facility]: 67-79-9364LccwztojnPYFP HealthcareStart: 86-89-6510BcgHfnrmqEFRF Healthcare Clinical Notes 08-26-2024 to 04-27-2025 Note Date & RnteZrwuFpopmynm94-15-2678 History of Present illness Narrative* Cammy Cruz NP - 04/27/2025 9:20 AM EDT Reason for Appointment: Patient ID: Tanya Morales is a 24 y.o. female who presents for Routine Visit Patient presents today for Return OB appointment. MEDICATIONS Current Outpatient Medications Medication Instructions metFORMIN XR (GLUCOPHAGE-XR) 500 mg, Oral, Daily with evening meal, Do not crush, chew, or split. metFORMIN XR (GLUCOPHAGE-XR) 1,000 mg, Oral, Daily with evening meal, Do not crush, chew, or split. ALLERGIES Allergies Allergen Reactions Lidocaine Dizziness and Swelling Swelling at injection site PROBLEMS Active Ambulatory Problems Diagnosis Date Noted No Active Ambulatory Problems Resolved Ambulatory Problems Diagnosis Date Noted No Resolved Ambulatory Problems Past Medical History: Diagnosis Date IBS (irritable bowel syndrome) HISTORY PAST MEDICAL HISTORY SOCIAL HISTORY Past Medical History: Diagnosis Date IBS (irritable bowel syndrome) Social History Tobacco Use Smoking status: Not on file Smokeless tobacco: Not on file Substance Use Topics Alcohol use: Not on file Drug use: Not on file FAMILY HISTORY No family history on file. SURGICAL HISTORY No past surgical history on file. REVIEW OF SYSTEMS Review of Systems: Review of Systems Constitutional: Negative. HENT: Negative. Eyes: Negative. Respiratory: Negative. Cardiovascular: Negative. Gastrointestinal: Negative. Genitourinary: Negative. Musculoskeletal: Negative. Skin: Negative. Neurological: Negative. All other systems reviewed and are negative. Hematological: Negative. Endocrine: Negative. Allergic/Immunologic: Negative. OBJECTIVE Objective: Physical Exam Constitutional: Appearance: Normal appearance. She is well-developed. Cardiovascular: Rate and Rhythm: Normal rate and regular rhythm. Pulmonary: Effort: Pulmonary effort is normal. Breath sounds: Normal breath sounds. Abdominal: General: Bowel sounds are normal. There is no distension. Palpations: Abdomen is soft. Tenderness: There is no abdominal tenderness. There is no guarding or rebound. Musculoskeletal: General: No swelling. Normal range of motion. Right lower leg: No edema. Left lower leg: No edema. Neurological: Mental Status: She is alert and oriented to person, place, and time. Skin: General: Skin is warm and dry. Psychiatric: Mood and Affect: Mood normal. Behavior: Behavior normal. Vitals and nursing note reviewed. Exam conducted with a hotel manager present. Vitals: Estimated body mass index is 39.51 kg/m as calculated from the following: Height as of 02/09/25: 5' 11 . Weight as of this encounter: 283 lb 4 oz. BP: 138/70 Patient's last menstrual period was 01/26/2025. Assessment/Plan ICD-10-CM 1. Second trimester ([facility]) Z34.92 POCT urinalysis dipstick manually resulted 2. 14 weeks gestation of ([facility]) Z3A.14 Return OB: Patient presents today for a routine obstetrics appointment. Patient is currently 14w3d . Patient states she is doing well but has complaints of being tired due to current . Patient has verbalizes frequent movement. labor precautions was discussed/given and patient was instructed to perform kick counts three times a day. Orders Placed This Encounter Procedures POCT urinalysis dipstick manually resulted Follow Up: Patient is to return to office in 4 week for routine OB appointment. Documented by Cammy Cruz NP on behalf of: Cammy Cruz NP documented in this encounterSaint John's Breech Regional Medical [id number] History of Present illness Narrative* Bernadette Haynes MA - 03/25/2025 10:00 AM EDT Reason for Appointment: Patient ID: Tanya Morlaes is a 24 y.o. female who presents for Amenorrhea Patient presents today for a Nurse OB Intake appointment. Patient is 9w5d with a Estimated Date of Delivery: 10/23/25 OB History Para Term AB Living 1 0 0 0 0 0 SAB IAB Ectopic Multiple Live Births 0 0 0 0 0 # Outcome Date GA Lbr Giancarlo/2nd Weight Sex Type Anes PTL Lv 1 Current Current Medications: has a current medication list which includes the following prescription(s): metformin xr, metforminxr, and ondansetron odt. Medical History: Active Ambulatory Problems Diagnosis Date Noted No Active Ambulatory Problems Resolved Ambulatory Problems Diagnosis Date Noted No Resolved Ambulatory Problems Past Medical History: Diagnosis Date IBS (irritable bowel syndrome) No family history on file. Social History Tobacco Use Smoking status: Not on file Smokeless tobacco: Not on file Substance Use Topics Alcohol use: Not on file Drug use: Not on file History reviewed. No pertinent surgical history. Allergies Allergen Reactions Lidocaine Dizziness and Swelling Swelling at injection site Vitals: Estimated body mass index is 39.61 kg/m as calculated from the following: Height as of 02/09/25: 5' 11 . Weight as of this encounter: 284 lb. BP: 128/76 Patient's last menstrual period was 01/26/2025. Assessment/Plan Diagnoses and all orders for this visit: Missed menses - Type and screen; Future - ABO/Rh; Future - CBC and differential - Hemoglobin A1c - RPR - Rubella antibody, IgG - Hepatitis B surface antigen - Hepatitis C antibody - HIV-1 and HIV-2 antibodies - Urine culture - POCT , urine manually resulted - POCT urinalysis dipstick manually resulted , unspecified gestational age ([facility]) - Type and screen; Future - ABO/Rh; Future - CBC and differential - Hemoglobin A1c - RPR - Rubella antibody, IgG - Hepatitis B surface antigen - Hepatitis C antibody - HIV-1 and HIV-2 antibodies - Rapid drug screen, urine; Future - ondansetron ODT (Zofran-ODT) 4 MG disintegrating tablet; Take 1 tablet (4 mg) by mouth every 6 (six) hours if needed for nausea or vomiting Encounter for supervision of normal first in first trimester ([facility]) - Rapid drug screen, urine; Future 9 weeks gestation of ([facility]) Nausea - ondansetron ODT (Zofran-ODT) 4 MG disintegrating tablet; Take 1 tablet (4 mg) by mouth every 6 (six) hours if needed for nausea or vomiting Nurse Note: Pt desires [place] billion to one. Pt was advised to have both [place] and labs done at the same time @ [facility]. Pt complains of nausea in the morning. Zofran was sent into pharmacy. Follow Up: Patient is to have labs drawn at directed and return to office for initial OB appointment with provider. Patient may call office as needed with any concerns or questions. Nurse Visit Completed by: Bernadette Haynes MA documented in this encounterSaint John's Breech Regional Medical [id number] History of Present illness Narrative* Luztom Payne, PRINCE - 02/09/2025 2:10 PM EDT Reason for Appointment: Patient ID: Tanya Morales is a 24 y.o. female who presents for Follow-up (Pt present today for a f/up visit. Pt was seen on 01/12/2025 for Menorrhagia. Pt was given labs and US to obtain. Patient was also prescribed Metformin to start taking.) Patient presents today for Follow up appointment to discuss results. MEDICATIONS Current Outpatient Medications Medication Instructions metFORMIN XR (GLUCOPHAGE-XR) 500 mg, Oral, Daily with evening meal, Do not crush, chew, or split. ALLERGIES Allergies Allergen Reactions Lidocaine Dizziness and Swelling Swelling at injection site PROBLEMS Active Ambulatory Problems Diagnosis Date Noted No Active Ambulatory Problems Resolved Ambulatory Problems Diagnosis Date Noted No Resolved Ambulatory Problems Past Medical History: Diagnosis Date IBS (irritable bowel syndrome) HISTORY PAST MEDICAL HISTORY SOCIAL HISTORY Past Medical History: Diagnosis Date IBS (irritable bowel syndrome) Social History Tobacco Use Smoking status: Not on file Smokeless tobacco: Not on file Substance Use Topics Alcohol use: Not on file Drug use: Not on file FAMILY HISTORY No family history on file. SURGICAL HISTORY No past surgical history on file. REVIEW OF SYSTEMS Review of Systems: Review of Systems Constitutional: Negative. HENT: Negative. Eyes: Negative. Respiratory: Negative. Cardiovascular: Negative. Gastrointestinal: Negative. Genitourinary: Negative. Musculoskeletal: Negative. Skin: Negative. Neurological: Negative. All other systems reviewed and are negative. Hematological: Negative. Endocrine: Negative. Allergic/Immunologic: Negative. OBJECTIVE Objective: Physical Exam Constitutional: Appearance: Normal appearance. She is well-developed. Cardiovascular: Rate and Rhythm: Normal rate and regular rhythm. Pulmonary: Effort: Pulmonary effort is normal. Breath sounds: Normal breath sounds. Abdominal: General: Bowel sounds are normal. There is no distension. Palpations: Abdomen is soft. Tenderness: There is no abdominal tenderness. There is no guarding or rebound. Musculoskeletal: General: No swelling. Normal range of motion. Right lower leg: No edema. Left lower leg: No edema. Neurological: Mental Status: She is alert and oriented to person, place, and time. Skin: General: Skin is warm and dry. Psychiatric: Mood and Affect: Mood normal. Behavior: Behavior normal. Vitals and nursing note reviewed. Exam conducted with a hotel manager present. Vitals: Estimated body mass index is 39.05 kg/m as calculated from the following: Height as of this encounter: 5' 11 . Weight as of this encounter: 280 lb. BP: 130/78 Patient's last menstrual period was 12/27/2024. ASSESSMENT & PLAN ICD-10-CM 1. Encounter to discuss test results Z71.2 2. Menorrhagia with regular cycle N92.0 Pt presents to discuss labs and ultrasound results. Reviewed labs results with pt in detail. Pt is on metformin currently and feeling better on metformin. Pt to have ultrasound obtained. As long as US is wnl will see pt for annual in 4-6 months. Increasing metformin to 1000mg. Documented by Luz Payne LPN on behalf of: Carmen Sidhu DO documented in this encounterSaint John's Breech Regional Medical [id number] History of Present illness Narrative* Luz PRINCE Payne - 01/12/2025 1:00 PM EDT Reason for Appointment: Patient ID: Tanya Morales is a 24 y.o. female who presents for Discuss Cycles Patient presents today for Acute Visit. and Consult appointment. MEDICATIONS No current outpatient medications ALLERGIES Allergies Allergen Reactions Lidocaine Dizziness and Swelling Swelling at injection site PROBLEMS Active Ambulatory Problems Diagnosis Date Noted No Active Ambulatory Problems Resolved Ambulatory Problems Diagnosis Date Noted No Resolved Ambulatory Problems Past Medical History: Diagnosis Date IBS (irritable bowel syndrome) HISTORY PAST MEDICAL HISTORY SOCIAL HISTORY Past Medical History: Diagnosis Date IBS (irritable bowel syndrome) Social History Tobacco Use Smoking status: Not on file Smokeless tobacco: Not on file Substance Use Topics Alcohol use: Not on file Drug use: Not on file FAMILY HISTORY No family history on file. SURGICAL HISTORY History reviewed. No pertinent surgical history. REVIEW OF SYSTEMS Review of Systems: Review of Systems Constitutional: Negative. HENT: Negative. Eyes: Negative. Respiratory: Negative. Cardiovascular: Negative. Gastrointestinal: Negative. Genitourinary: Positive for menstrual problem. Musculoskeletal: Negative. Skin: Negative. Neurological: Negative. All other systems reviewed and are negative. Hematological: Negative. Endocrine: Negative. Allergic/Immunologic: Negative. OBJECTIVE Objective: Physical Exam Constitutional: Appearance: Normal appearance. She is well-developed. Cardiovascular: Rate and Rhythm: Normal rate and regular rhythm. Pulmonary: Effort: Pulmonary effort is normal. Breath sounds: Normal breath sounds. Abdominal: General: Bowel sounds are normal. There is no distension. Palpations: Abdomen is soft. Tenderness: There is no abdominal tenderness. There is no guarding or rebound. Musculoskeletal: General: No swelling. Normal range of motion. Right lower leg: No edema. Left lower leg: No edema. Neurological: Mental Status: She is alert and oriented to person, place, and time. Skin: General: Skin is warm and dry. Psychiatric: Mood and Affect: Mood normal. Behavior: Behavior normal. Vitals and nursing note reviewed. Exam conducted with a hotel manager present. Vitals: Estimated body mass index is 39.54 kg/m as calculated from the following: Height as of this encounter: 5' 11 . Weight as of this encounter: 283 lb 8 oz. BP: 126/70 Patient's last menstrual period was 12/27/2024. ASSESSMENT & PLAN ICD-10-CM 1. Menorrhagia with regular cycle N92.0 2. Dysmenorrhea N94.6 Pt presents with heavy menstrual cycles and pain. Pt given labs and ultrasound orders to have obtained. Pt recently started to not preventing . Pt to start metformin. Discussed increasing metformin to 1000mg. Pt to return in 6 weeks for annual and review labs and ultrasound. Documented by Luz Payne LPN on behalf of: Carmen Sidhu DO documented in this encounterSaint John's Breech Regional Medical [id number] Evaluation note* Diagnosis Onset Date Resolution Status Admit Date Left ankle sprain noneactiveFebruary 2024 2:18pm [facility] Work Phone: Evaluation note* Diagnosis Onset Date Resolution Status Kidney stone acuteRight flank painacute [facility] Work Phone: Evaluation noteNo assessment information available [facility] Work Phone: Evaluation note* Diagnosis Menorrhagia with regular cycle Dysmenorrhea PCOS (polycystic ovarian syndrome) Polycystic ovaries documented in this encounter [facility] HealthcareEvaluation note* Diagnosis Encounter to discuss test results Other specified counseling Menorrhagia with regular cycle Insulin resistance Other abnormal glucose documented in this encounter [facility] HealthcareEvaluation note* Diagnosis Missed menses , unspecified gestational age ([facility]) Encounter for supervision of normal first in first trimester ([facility]) 9 weeks gestation of ([facility]) Nausea Nausea alone documented in this encounter [facility] HealthcareEvaluation note* Diagnosis Second trimester ([facility]) state, incidental 14 weeks gestation of ([facility]) documented in this encounter [facility] HealthcareReason for referral (narrative)No reason for referral information availableC[facility] Work Phone: Summary Purpose Family History Relationship Condition Age at Onset Recorded Date/T rissa father Myocardial infarction Unknown High blood cholesterolUnknownPrediabetesUnknownPsoriasisUnknownRheumatoid arthritisUnknownmotherBorderline personality disorderUnknownEndometriosisUnknown Advance Directives Advance Directive Response Recorded Date/ Time Advance Directives No December 05 9:17am Advance Directive Response Recorded Date/ Time Advance Directives No December 05 8:17am Chief Complaint and Reason for Visit Chief Complaint Establish N20.0 R10.9Reason for VisitKidney stone Right flank pain Chief Complaint Establish N20.0 R10.9 DysuriaReason for VisitKidney stone Right flank pain Chief Complaint Admit Date left ankle injury August 26, 2024 2:18pm Reason for Visit Admit Date Left ankle sprain August 26, 2024 2:18pm Chief Complaint Admit Date Amb Documentation December 03, 2024 9:04a m e28.2 n92.0 n94.6 January 19, 2025 12:2 4pm Additional Source Comments INFORMATION SOURCE (unrecogn ized section and content) DATE CREATED AUTHOR 07/15/2022 [facility] DATE CREATED AUTHOR AUTHOR'S ORGANIZ ATION 02/17/2024 [facility] DATE CREATED AUTHOR AUTHOR'S ORGANIZ ATION 12/04/2024 [facility] DATE CREATED AUTHOR AUTHOR'S ORGANIZ ATION 01/27/2025 [facility] DATE CREATED AUTHOR AUTHOR'S ORGANIZ ATION 04/28/2025 [facility] EPIC Care Teams (unrecognized sec tion and content) Team Status: Active Member Role Status Dates PHYSICIAN NO FAMILY Primary Care Provider Active Team Status: Active Member Role Status Dates PHYSICIAN NO FAMILY Primary Care Provider Active Start: December 03, 2024 Dash Valles ProviderActiveStart: December 03, 2024 Team Status: Inactive Member Role Status Dates PHYSICIAN NO FAMILY Primary Care Provider Active Start: January 19, 2025 End: January 19Darryl Lai ProviderActiveStart: January 19, 2025 End: January 19, 2025 Team Status: Inactive Member Role Status Dates PHYSICIAN NO FAMILY Primary Care Provider Active Start: August 26, 2024 End: August 26Omar Callejas ProviderActiveStart: August 26, 2024 End: August 26, 2024 Team Status: Active Member Role Status Dates Shannon Anna APRN INCINERATOR OPERATOR-C Primary Care Provider Active Team Status: Inactive Member Role Status Dates Shannon Anna APRN INCINERATOR OPERATOR-C Primary Care Provider, Attending Provider Active Start: February 09, 2024 End: February 09, 2024 Team Status: Inactive Member Role Status Dates Shannon Anna APRN INCINERATOR OPERATOR-C Primary Care Provider, Attending Provider Active Start: February 12, 2024 End: February 12, 2024 Team Status: Inactive Member Role Status Dates Tricia Gurrola APRN Attending Provider Active Start: April 29, 2024 End: April 29, 2024 Team Status: Active Member Role Status Dates PHYSICIAN NO FAMILY Primary Care Provider Active Start: August 26, 2024 Omar Schultz ProviderActiveStart: August 26, 2024 Team MemberRelationshipSpecialtyStart DateEnd Date Shannon Anna NP [address] [id number] PCP - GeneralFamily Medicine01/12/25Team MemberRelationshipSpecialtyStart DateEnd Date Shannon Anna NP [facility] [place] [address] PCP - GeneralFamily Medicine01/12/25Team MemberRelationshipSpecialtyStart DateEnd Date Shannon Anna NP [address] [place] [address] PCP - GeneralFamily Medicine01/12/25Team MemberRelationshipSpecialtyStart DateEnd Date Shannon Anna NP [address] [place] [address] PCP - GeneralFamily Medicine01/12/25Team MemberRelationshipSpecialtyStart DateEnd Date Shannon Anna NP [address] [facility] [place] [place] [address] PCP - Generalmi Medicine01/12/25Team MemberRelationshipSpecialtyStart DateEnd Date Shannon Anna NP [address] [facility] [address] [place], [place] [address] [facility] - [facility]Team MemberRelationshipSpecialtyStart DateEnd Date Shannon Anna NP [address] [facility] [place] [address] [facility] - [facility]/25Team MemberRelationshipSpecialtyStart DateEnd Date Shannon Anna NP [address] [facility] [place] [address] PCP - Generalmi Medicine01/12/25 Goals (unrecognized section and content) Goals may be documented in a n alternate sectionGoals may be documented in an alternate sectionGoals may be documented in an alternate sectionGoals may be documented in an alternate sectionGoals may be documented in an alternate section Reason for Visit (unrecogniz ed section and content) ReasonCommentsDiscuss CyclesReasonCommentsFollow-upPt present today for a f/up visit. Pt was seen on 01/12/2025 for Menorrhagia. Pt was given labs andUS to obtain. Patient was also prescribed Metformin to start taking.ReasonComments AmenorrheaReasonCommentsRoutine Visit FOR RECORDS PERTAINING TO PATIENTS WHO ARE OR HAVE BEEN ENROLLED IN A CHEMICAL DEPENDENCY/SUBSTANCEABUSE PROGRAM, SOME INFORMATION MAY BE OMITTED. This clinical summary was aggregated from multiple sources. Caution should be exercised in using it in the provision of clinical care. This summary normalizes information from multiple sources, and as a consequence, information in this document may materially change the coding, format and clinical context of patient data. In addition, data may be omitted in some cases. CLINICAL DECISIONS SHOULD BE BASED ON THE PRIMARY CLINICAL RECORDS. [facility] [employer] [facility]. provides no warranty or guarantee of the accuracy or completeness of information in this document.
[2025-06-01 10:59] LABS: Hematocrit 34.3 % (36.0-48.0); Hemoglobin 11.8 g/dL (12.0-16.0); Immature Granulocytes Abs Auto 0.04 10^3/uL (0.00-0.03); Immature Granulocytes Pct Auto 0.3 % (0.0-0.5); Lymphocytes Absolute Auto 1.8 10^3/uL (1.2-3.8); Mean Corpuscular HGB Conc 34.4 g/dL (29.9-35.2); Mean Corpuscular Hemoglobin 30.7 pg (26.7-34.0); Mean Corpuscular Volume 89.3 fL (81.0-99.0); Platelet Count 323 10^3/uL (150-450); Red Blood Count 3.84 10^6/uL (4.20-5.40); White Blood Count 12.5 10^3/uL (4.0-11.0)
[2025-06-01 11:26] LABS: Cannabinoid Screen Urine POSITIVE (NEGATIVE); Methamphetamines Screen Urine NEGATIVE (NEGATIVE); Tricyclic Antidepressant Urine NEGATIVE (NEGATIVE)
[2025-06-02 05:08] LABS: Rubella Antibodies, IgG 2.01 index (Immune >0.99)
[2025-06-02 13:08] LABS: Rapid Plasma Reagin, Quant Non Reactive titer (NonRea<1:1)
== END 2025-06-01 10:03 | disposition home or self-care (01) ==
LOC: LAB 10:06
PROVIDERS: PCP Nurse Practitioner Family; Visit Provider Obstetrics & Gynecology
DX: Z34.01 Encounter for supervision of normal first pregnancy, first trimester (principal); Z01.419 Encounter for gynecological examination (general) (routine) without abnormal findings; N92.6 Irregular menstruation, unspecified
CPT/HCPCS: 36415; 80307; 80349; 83036; 85025; 86592; 86762; 86803; 86850; 86900; 86901; 87086; 87340; 87389; 88175

== ENCOUNTER 2025-06-01 14:55 | Outpatient (REF) | payer OTHER, SELFPAY ==
--- OUTSIDE RECORDS SUMMARY | 2025-06-01 11:20 | XMS_ITS | Encounter Summary ---
Author Organization [facility] Address [address] [place] [address] Care Team Providers Care Enterprise Sales Executive Name Role Phone Shannon Anna NP Primary Care Provider Reason for Visit * ReasonCommentsRoutine Visit Encounter Details DateTypeDepartmentCare Team (Latest Contact Info)Lcjovkokdzx57/03/2025 11:20 AM ESTRoutine [facility] [address] [facility] [place] [address] Alvaro Sidhu DO [address] [facility] [address] [place], [place] [id number] Nausea (Primary Dx); Second trimester ([facility]); 19 weeks gestation of ([facility]); Well woman exam with routine gynecological exam; Exposure to STD; Need for maternal serum alpha-protein (MSAFP) screening ([facility]); Screening, , for anatomic survey ([facility]) Social History Tobacco UseTypesPacks/DayYears UsedDateSmoking Tobacco: Never Assessed Estimated Date of UlaeoaqsPdfiebasNig16/26/2026Based on UltrasoundSex and Gender InformationValueDate RecordedSex Assigned at BirthNot on fileLegal SexFemale 12/21/2024 3:32 PM EDTGender FtdsmhydIwqhyu62/13/2025 2:01 PM EDTSexual OrientationNot on filedocumented as of this encounter Last Filed Vital Signs Vital SignReadingTime TakenCommentsBlood Pyuqpncv781/7012 11:54 AM EST Pulse--Temperature--Respiratory Rate--Oxygen Saturation--Inhaled Oxygen Concentration--Lqphyz837 kg (283 lb)06/01/2025 11:54 AM ESTHeight--Body Mass Index39.4708 2:20 PM EDTdocumented in this encounter Progress Notes * Bernadettedel Haynes MA - 06/01/2025 11:20 AM EST Reason for Appointment: Patient ID: Tanya Morales is a 24 y.o. female who presents for Routine Visit Patient presents today for Annual Exam., STD Check., and Return OB appointment. MEDICATIONS Current Outpatient Medications [...] Constitutional: Appearance: Normal appearance. She is well-developed. Genitourinary: Vulva normal. Right Adnexa: no mass present. Left Adnexa: no mass present. Breasts: Breasts are soft. Right: Normal. Left: Normal. Cardiovascular: Rate and Rhythm: Normal rate and [...] nursing note reviewed. Exam conducted with a stitching machine feeder or offbearer present. Vitals: Estimated body mass index is 39.47 kg/m?? as calculated from the following: Height as of 02/09/25: 5' 11 . Weight as of this encounter: 283 lb. BP: 118/70 Patient's last menstrual period was 01/26/2025. Assessment/Plan ICD-10-CM 1. Second trimester ([facility]) Z34.92 POCT urinalysis dipstick manually resulted 2. 19 weeks gestation of ([facility]) Z3A.19 3. Well woman exam with routine gynecological exam Z01.419 Pap Smear 4. Exposure to STD Z20.2 SURESWAB(R) ADVANCED VAGINITIS PLUS, TMA CHLAMYDIA TRACHOMATIS (GENITO/STI) Neisseria gonorrhea DNA probe, direct 5. Need for maternal serum alpha-protein (MSAFP) screening ([facility]) Z36.1 Alpha fetoprotein, maternal Alpha fetoprotein, maternal 6. Screening, , for anatomic survey ([facility]) Z36.89 US OB 14+ weeks anatomy scan US OB 14+ weeks anatomy scan Assessment/Plan Return OB/Annual Exam: Patient presents today for an annual/cx exam/routine obstetrics appointment. Patient is currently 19w3d . Patient is doing well and states she has no complaints. Pap/cultures was obtained without difficulty and patient was given msAFP/Anatomy US order to have obtained. Orders Placed This Encounter Procedures US OB 14+ weeks anatomy scan CHLAMYDIA TRACHOMATIS (GENITO/STI) Neisseria gonorrhea DNA probe, direct Alpha fetoprotein, maternal POCT urinalysis dipstick manually resulted Follow Up: Patient is to return to our office in 4 weeks for routine OB appointment Documented by Bernadette Haynes MA on behalf of: Alvaro Sidhu DO documented in this encounter Miscellaneous Notes * Addendum Note - Georgi Cruz NP - 06/01/2025 11:20 AM ESTAddended by: GEORGI CRUZ on: 06/01/2025 12:13 PM Modules accepted: Orders documented in this encounter Plan of Treatment DateTypeDepartmentCare Team (Latest Contact Info)Bsrdnstkaea45/10/2025 11:00 AM ESTAncillary Procedure [facility] [address] [facility] [place] [address] 07/06/2025 2:10 PM ESTRoutine [facility] [address] [facility] [place] [address] Alvaro Sidhu DO [address] [facility] [place] [address] NameTypePriorityAssociated DiagnosesOrder ScheduleSURESWAB(R) ADVANCED VAGINITIS PLUS, TMAPathology and CytologyRoutine Exposure to STD Ordered: 06/01/2025HLAMYDIA TRACHOMATIS (GENITO/STI)LabRoutine Exposure to STD Ordered: 06/01/2025Neisseria gonorrhea DNA probe, directLabRoutine Exposure to STD Ordered: 06/01/2025Pap SmearPathology and CytologyRoutine Well woman exam with routine gynecological exam Ordered: 5Alpha fetoprotein, maternalLabRoutine Need for maternal serum alpha-protein (MSAFP) screening ([facility]) Expected: 06/01/2025 (Approximate), Expires: 06/01/2026US OB 14+ weeks anatomy scanImagingRoutine Screening, , for anatomic survey ([facility]) Expected: 06/01/2025 (Approximate), Expires: 06/01/2026documented as of this encounter Procedures Procedure NamePriorityDate/TimeAssociated DiagnosisCommentsPOCT URINALYSIS WCSVVXDGAydlwat83/03/2025 11:57 AM EST Second trimester ([facility]) documented in this encounter Results * (ABNORMAL) POCT urinalysis dipstick manually resulted (06/01/2025 11:57 AM EST)ComponentValueRef RangeTest MethodAnalysis TimePerformed AtPathologist SignatureColor, UAYellowClarity, UACloudyGlucose, UANegativeNegative - 2000(110) ++++ mg/dLBilirubin, UANegativeNegative - 4(70) +++ mg/dLKetones, UA NegativeNegative - 160(16) ++++ mg/dLSpec Grav, UA1.0151 - 1.03Blood, UA NegativeNegative - 50 Jostin/mcLpH, UA7.05 - 9Protein, UANegativeNegative - 2000(20) ++++ mg/dLUrobilinogen, UA1.00.2 - 12 mg/dLLeukocytes, UA3+Negative - 500+++ Elian/mcLNitrite, UANegativeNegative - PositiveSpecimen (Source) Anatomical Location / LateralityCollection Method / VolumeCollection Time Received PmpfMmyhk86/03/2025 11:57 AM EST Narrative Authorizing ProviderResult TypeResult StatusCorey Nahum DOPOINT OF CARE TEST ENTER/EDIT ORDERABLESFinal Result documented in this encounter Visit Diagnoses Diagnosis Nausea- Primary Nausea alone Second trimester ([facility]) state, incidental 19 weeks gestation of ([facility]) Well woman exam with routine gynecological exam Routine gynecological examination Exposure to STD Need for maternal serum alpha-protein (MSAFP) screening ([facility]) Screening, , for anatomic survey ([facility]) Encounter for anatomic survey documented in this encounter Care Teams Team MemberRelationshipSpecialtyStart DateEnd Date Shannon Anna NP [address] [facility] [address] [place] [phone] PCP - GeneralFamily Medicine01/12/25documented as of this encounter
--- OUTSIDE RECORDS SUMMARY | 2025-06-01 14:59 | XMS_ITS | Clinical Summary ---
Author Organization [facility] Address [address] [place] [address] Care Team Providers Care Title Insurance Sales Representative Name Role Phone Shannon Anna NP Primary Care Provider Allergies Active AllergyReactionsCriticalityNoted DateCommentsLidocaineDizziness,Swelling 12/02/2024 Swelling at injection site Medications MedicationSigDispense QuantityRefillsLast FilledStart DateEnd DateStatus metFORMIN XR (Glucophage-XR) 500 MG 24 hr tablet Indications:PCOS (polycystic ovarian syndrome)Take 1 tablet (500 mg) by mouth in the evening. Take with meals Do not crush, chew, or split. 30 tablet 11001/12/738302/6Active metFORMIN XR (Glucophage-XR) 500 MG 24 hr tablet Indications:Insulin resistanceTake 2 tablets (1,000 mg) by mouth in the evening. Take with meals Do not crush, chew, or split. 60 tablet 1108/817495/6Active ondansetron (Zofran) 4 MG tablet Indications:NauseaTake 1 tablet (4 mg) by mouth every 6 (six) hours if needed for nausea or vomiting for up to 30 doses Take 1 tablet by mouth every 6 hours as needed for nausea. 30 tablet 5Active Encounters DateTypeDepartmentCare WtuiWssvojcrdub84/03/2025 11:20 AM ESTRoutine [place] [address] Alvaro Sidhu DO Nausea (Primary Dx); Second trimester ([facility]); 19 weeks gestation of ([facility]); Well woman exam with routine gynecological exam; Exposure to STD; Need for maternal serum alpha-protein (MSAFP) screening ([facility]); Screening, , for anatomic survey ([facility])5Clinisync Result Encounter [facility] External Department Unsolicited Alvaro Sidhu DO [address] [address] Alvaro Sidhu DO 04/27/2025 9:20 [place] [phone] Cammy Cruz, PEARL Second trimester ([facility]); 14 weeks gestation of ([facility])[address] [address] Cammy Cruz NP 03/25/2025 10:00 [place] [address] [place]: 9w5d03/25/2025 9:30 AM EDTAncillary [place] [address] [phone] Missed menses; Positive urine test ([facility])03/18/2025Travelfrom Last 3 Months Social History Tobacco UseTypesPacks/DayYears UsedDateSmoking Tobacco: Never Assessed Estimated Date of EarjwzmjKkznhxnlQzq59/26/2026ased on UltrasoundSex and Gender InformationValueDate RecordedSex Assigned at BirthNot on fileLegal SexFemale 12/21/2024 3:32 PM EDTGender HphucwzkUinjiq05/13/2025 2:01 PM EDTSexual OrientationNot on file Last Filed Vital Signs Vital SignReadingTime TakenCommentsBlood Jghchvjn783/7006/01/2025 11:54 AM EST Pulse--Temperature--Respiratory Rate--Oxygen Saturation--Inhaled Oxygen Concentration--Tnxdjb254 kg (283 lb)06/01/2025 11:54 AM BOVIxtevq880.3 cm (5' 11 )02/09/2025 2:20 PM EDTBody Mass Index39.47002/09/2025 2:20 PM EDT Plan of Treatment DateTypeDepartmentCare Team (Latest Contact Info)Oahyvtvitmj99/10/2025 11:00 AM ESTAncillary Procedure [facility] [address] [place] [address] [place] [phone] 07/06/2025 2:10 PM ESTRoutine [facility] [address] [place] [address] [place] [phone] Alvaro Sidhu, [address] [place] [address] Health MaintenanceDue DateLast DoneCommentsCOVID-19 Vaccine ( season) 2025Influenza AvcdzbmHnujmpada04/28/2025, 3Pneumococcal Vaccine: Pediatrics (0 to 5 Years) and At-Risk Patients (6 to 64 Years)Aged OutNo longer eligible based on patient's age to complete this topic Procedures Procedure NamePriorityDate/TimeAssociated DiagnosisCommentsPOCT URINALYSIS ZECUUXRXApawjxy41/03/2025 11:57 AM EST Second trimester ([facility]) ALL TYPE AND BIPQUUUwlcorg43/03/2025 10:24 AM EST MLR HEMOGLOBIN P1CWcxgrhe39/03/2025 10:24 AM EST ALL CBC WITH AUTO OCWRKfabrdx50/03/2025 10:24 AM EST [facility] DRUG SCREEN RAPID (URINE)Qdtyqrq4106/01/2025 10:10 AM EST POCT URINALYSIS DEKAIBZOOjpefbn25/29/2025 9:35 AM EDT Second trimester ([facility]) POCT URINALYSIS PNEBPUFAOequpan26/26/2025 11:16 AM EDT Missed menses POCT , AKDTJJxkmpxd69/26/2025 11:16 AM EDT Missed menses US OB KKDBHJKPVHZKFixmfnc87/26/2025 10:36 AM EDT Missed menses Positive urine test ([facility]) from Last 3 Months Results * (ABNORMAL) POCT urinalysis dipstick manually resulted (06/01/2025 11:57 AM EST) Only the most recent of3 resultswithin the time period is included. ComponentValueRef RangeTest MethodAnalysis TimePerformed AtPathologist Signature Color, UAYellowClarity, UACloudyGlucose, UANegativeNegative - 2000(110) ++++ mg/dLBilirubin, UANegativeNegative - 4(70) +++ mg/dLKetones, UANegativeNegative - 160(16) ++++ mg/dLSpec Grav, UA1.0151 - 1.03Blood, UANegativeNegative - 50 Jostin/mcLpH, UA7.05 - 9Protein, UANegativeNegative - 2000(20) ++++ mg/dL Urobilinogen, UA1.00.2 - 12 mg/dLLeukocytes, UA3+Negative - 500+++ Elian/mcL Nitrite, UANegativeNegative - PositiveSpecimen (Source)Anatomical Location / LateralityCollection Method / VolumeCollection TimeReceived KvgpNtdnm95/03/2025 11:57 AM EST Narrative Authorizing ProviderResult TypeResult StatusCorey Nahum DOPOINT OF CARE TEST ENTER/EDIT ORDERABLESFinal Result * MLR HEMOGLOBIN A1C (06/01/2025 10:24 AM EST)ComponentValueRef RangeTest Method Analysis TimePerformed AtPathologist SignatureGLYCOHEMOGLOBIN A1C5.44.5 - 6.2 %TBHComment: ADA RECOMMENDED LIMIT 4.0 - 6.0 ADA THERAPEUTIC TARGET < 7.0 ACTION SUGGESTED > 7.0 ESTIMATED AVERAGE DNOIKPH117dw/dLTBHSpecimen (Source)Anatomical Location / LateralityCollection Method / VolumeCollection TimeReceived Time06/01/2025 10:24 AM EST06/01/2025 10:37 AM EST Narrative [facility] - 06/01/2025 11:46 AM EST Authorizing ProviderResult TypeResult StatusCorey Nahum DOCLINISYNCFinal Result Performing OrganizationAddressCity/State/ZIP CodePhone Number [facility] * ALL TYPE AND SCREEN (06/01/2025 10:24 AM EST)ComponentValueRef RangeTest MethodAnalysis TimePerformed AtPathologist SignatureBLOOD TYPEO NegativeTBH ANTIBODY SCREENNEGATIVETBHSpecimen (Source)Anatomical Location / Laterality Collection Method / VolumeCollection TimeReceived Time06/01/2025 10:24 AM EST 06/01/2025 10:37 AM EST Narrative [facility] - 06/01/2025 11:53 AM EST [facility] , ?? Authorizing ProviderResult TypeResult StatusCorey Nahum DOCLINISYNCFinal Result Performing OrganizationAddressCity/State/ZIP CodePhone Number [facility]IN[facility]NC TB * (ABNORMAL) ALL CBC WITH AUTO DIFF (06/01/2025 10:24 AM EST)ComponentValueRef RangeTest MethodAnalysis TimePerformed AtPathologist SignatureTBH WBC12.5(H) 4.0 - 11.0 10 3/uLTBHTBH RBC3.84(L)4.20 - 5.40 10 6/uLTBHTBH HGB11.8(L)12.0 - 16.0 g/dLTBHTBH HCT34.3(L)36.0 - 48.0 %TBHTBH MCV89.381.0 - 99.0 fLTBHTBH MCH 30.726.7 - 34.0 pgTBHTBH MCHC34.429.9 - 35.2 g/dLTBHTBH RDW13.811.0 - 15.0 % TBHTBH EGE975290 - 450 10 3/uLTBHTBH MPV12.69.5 - 13.5 fLTBHNEUTROPHILS PERCENT AUTO77.0(H)43.0 - 75.0 %TBHLYMPHOCYTES PERCENT AUTO14.4(L)20.5 - 60.0 %TBHMONOCYTES PERCENT AUTO7.71.7 - 12.0 %TBHTBH EO %0.4(L)0.9 - 7.0 %TBH BASOPHILS PERCENT AUTO0.20.2 - 2.0 %TBHIMMATURE GRANULOCYTES PCT AUTO0.30.0 - 0.5 %TBHNEUTROPHILS ABSOLUTE AUTO9.7(H)1.4 - 6.5 10 3/uLTBHLYMPHOCYTES ABSOLUTE AUTO1.81.2 - 3.8 10 3/uLTBHMONOCYTES ABSOLUTE AUTO1.0(H)0.3 - 0.8 10 3/uLTBHTBH EO #0.10.0 - 0.7 10 3/uLTBHBASOPHILS ABSOLUTE AUTO0.00.0 - 0.1 10 3/uLTBHIMMATURE GRANULOCYTES ABS AUTO0.04(H)0.00 - 0.03 10 3/uLTBHSpecimen (Source)Anatomical Location / LateralityCollection Method / VolumeCollection TimeReceived Time06/01/2025 10:24 AM EST06/01/2025 10:37 AM EST Narrative [facility]NC - 06/01/2025 11:24 AM EST Authorizing ProviderResult TypeResult StatusCorey Nahum DOCLINISYNCFinal Result Performing OrganizationAddressCity/State/ZIP CodePhone Number [facility]INIS[facility]NC TBH * (ABNORMAL) TBH DRUG SCREEN RAPID (URINE) (06/01/2025 10:10 AM EST)Component ValueRef RangeTest MethodAnalysis TimePerformed AtPathologist Signature CANNABINOID SCREEN URINEPOSITIVE(A)NEGATIVETBHPHENCYCLIDINE SCREEN URINE NEGATIVENEGATIVETBHCOCAINE SCREEN URINENEGATIVENEGATIVETBHMETHAMPHETAMINES SCREEN URINENEGATIVENEGATIVETBHOPIATE SCREEN URINENEGATIVENEGATIVETBH AMPHETAMINE SCREEN URINENEGATIVENEGATIVETBHBENZODIAZEPINES SCREEN URINE NEGATIVENEGATIVETBHTRICYCLIC ANTIDEPRESSANT URINENEGATIVENEGATIVETBHMETHADONE SCREEN URINENEGATIVENEGATIVETBHBARBITURATES SCREEN URINENEGATIVENEGATIVETBH OXYCODONE SCREEN URINENEGATIVENEGATIVETBHBUPRENORPHINE SCREEN URINENEGATIVE NEGATIVETBHComment: DRUG CLASS TEST SYSTEM CUT-OFF CONCENTRATIONS ARE FOLLOWS: AMP (Amphetamine): 500 ng/mL BAR (Barbiturates): 200 ng/mL BZO (Benzodiazepines): 150 ng/mL BUP (Buprenorphine): 10 ng/mL GLENROY (Cocaine): 150 ng/mL mAMP (Methamphetamine): 500 ng/mL MTD (Methadone): 200 ng/mL OPI (Opiates): 100 ng/mL OXY (Oxycodone): 100 ng/mL PCP (Phencyclidine): 25 ng/mL THC (Cannabinoids): 50 ng/mL TCA (Trycyclic Antidepressants): 300 ng/mL Specimen (Source)Anatomical Location / LateralityCollection Method / Volume Collection TimeReceived Time06/01/2025 10:10 AM EST06/01/2025 10:37 AM EST Narrative [facility] - 06/01/2025 11:26 AM EST Authorizing ProviderResult TypeResult StatusCorey Nahum DOCLINISYNCFinal Result Performing OrganizationAddressCity/State/ZIP CodePhone Number [facility]ISYN[facility] * (ABNORMAL) POCT , urine manually resulted [...] DateEnd Date Shannon Anna NP [address] [facility] [address] [place] [id number] [facility]01/12/25
--- OUTSIDE RECORDS SUMMARY | 2025-06-01 14:59 | XMS_ITS | Encounter Summary ---
Author Organization [facility] Address [address] [place] [address] Care Team Providers Care Plant And Equipment Worker Name Role Phone Shannon Anna OSTEOPATHIC MEDICINE TEACHER Primary Care Provider Encounter Details DateTypeDepartmentCare Team (Latest Contact Info)Qxeerxxfpos22/03/2025amboo flowsheet [facility] [address] [place] [address] Alvaro Sidhu DO [address] [place], [place] [phone] Social History Tobacco UseTypesPacks/DayYears UsedDateSmoking Tobacco: Never Assessed Estimated Date of DutsqzwnVselshetLmq01/26/2026Based on UltrasoundSex and Gender InformationValueDate RecordedSex Assigned at BirthNot on fileLegal SexFemale 12/21/2024 3:32 PM EDTGender FtnpsitiSbcaua48/13/2025 2:01 PM EDTSexual OrientationNot on filedocumented as of this encounter Plan of Treatment DateTypeDepartmentCare Team (Latest Contact Info)Zseaomoksqy54/10/2025 11:00 AM ESTAncillary Procedure [facility] AD[facility] [address] [place] [address] 07/06/2025 2:10 PM ESTRoutine [facility] [address] [place] [address] Alvaro Sidhu DO [address] [facility] [address] [place] [address] documented as of this encounter Visit Diagnoses Not on filedocumented in this encounter Care Teams Team MemberRelationshipSpecialtyStart DateEnd Date Shannon Anna NP [facility] [place] [address] PCP - GeneralFamily Medicine01/12/25documented as of this encounter
--- OUTSIDE RECORDS SUMMARY | 2025-06-01 14:59 | XMS_ITS | Clinical Summary ---
Author Organization License Buddy s tem Address [id number] [place] [address] Care Team Providers Care Systems Analyst Engineer Name Role Phone Shannon Anna Primary Care Provid er Allergies Active AllergyReactionsCriticalityNoted NeigBeksbpshJsykozmisWmywbbfs29/05/2025 Swelling at injection site Medications No known [...] RecordedSex Assigned at BirthNot on fileLegal Sex Sfznqy7912/02/2024 4:43 PM EDTGender IdentityNot on fileSexual OrientationNot on file Last Filed Vital Signs Vital SignReadingTime TakenCommentsBlood Ycblrcqq384/95012/02/2024 4:58 PM EDT Xdbpw68109/05/2025 4:58 PM QDFJsotcwhgssp60.2 ??C (99 ??F)12/02/2024 4:58 PM EDT Respiratory Pmpe477212/02/2024 4:58 PM EDTOxygen Nqtnirmqvg36%12/02/2024 4:58 PM EDTInhaled Oxygen Concentration--Bycdaf186.2 kg (265 lb)12/02/2024 4:58 PM EDT Gyqooa834.3 cm (5' 11 )12/02/2024 4:58 PM EDTBody Mass Index36.9612/02/2024 4:58 PM EDT Plan of Treatment Health MaintenanceDue DateLast DoneCommentsDepression Wwjuxqbfe08/18/2015Tobacco Zbyysovik59/18/2015dult BMI Follow Up Plan1DTaP,Tdap and Td Vaccines (1 - Tdap)2Pap Smear11/15/2023OVID-19 Vaccine (2 - season) /Influenza Lwsyoad14dult BMI Screening Medical Devices Not on file Insurance Care Teams Team MemberRelationshipSpecialtyStart DateEnd Date Shannon Anna APRN-NP [address] [place] [address] PCP - GeneralNurse Practitioner12/02/24
--- OUTSIDE RECORDS SUMMARY | 2025-06-01 14:59 | XMS_ITS | Encounter Summary ---
Author Organization [facility] Address [address] [place] [address] Care Team Providers Care Protective Services Case Worker Name Role Phone Shannon Anna MANAGER [employer] Primary Care Provider Encounter Details DateTypeDepartmentCare Team (Latest Contact Info)Jjmpascqnqz20/03/2025Clinisync Result Encounter [facility] Unsolicited Alvaro Sidhu DO [address] [place], [place] [id number] Social History Tobacco UseTypesPacks/DayYears UsedDateSmoking Tobacco: Never Assessed Estimated Date of UequratzIpvtxdkrFox55/26/2026Based on UltrasoundSex and Gender InformationValueDate RecordedSex Assigned at BirthNot on fileLegal SexFemale 12/21/2024 3:32 PM EDTGender BzjksiypVeojgv77/13/2025 2:01 PM EDTSexual OrientationNot on filedocumented as of this encounter Plan of Treatment DateTypeDepartmentCare Team (Latest Contact Info)Svlrecatqip67/10/2025 11:00 AM ESTAncillary Procedure [facility] [address] [facility] [place] [phone] 07/06/2025 2:10 PM ESTRoutine [facility] [address] [phone] Alvaro Sidhu, DO [address] [place] [address] [place] [address] documented as of this encounter Procedures Procedure NamePriorityDate/TimeAssociated DiagnosisCommentsMLR HEMOGLOBIN A1C Aylwkoh3806/01/2025 10:24 AM EST ALL TYPE AND AQYQTFUjhucev00/03/2025 10:24 AM EST ALL CBC WITH AUTO VJPXKwhxxiq07/03/2025 10:24 AM EST [facility] DRUG SCREEN RAPID (URINE)Blabmph4506/01/2025 10:10 AM EST documented in this encounter Results * ALL TYPE AND SCREEN (06/01/2025 10:24 AM EST)ComponentValueRef RangeTest MethodAnalysis TimePerformed AtPathologist SignatureBLOOD TYPEO NegativeTBH ANTIBODY SCREENNEGATIVETBHSpecimen (Source)Anatomical Location / Laterality Collection Method / VolumeCollection TimeReceived Time06/01/2025 10:24 AM EST 06/01/2025 10:37 AM EST Narrative [facility] - 06/01/2025 11:53 AM EST [facility] , ?? Authorizing ProviderResult TypeResult StatusCorey Nahum DOCLINISYNCFinal Result Performing OrganizationAddressCity/State/ZIP CodePhone Number [facility] * MLR HEMOGLOBIN A1C (06/01/2025 10:24 AM EST)ComponentValueRef RangeTest Method Analysis TimePerformed AtPathologist SignatureGLYCOHEMOGLOBIN A1C5.44.5 - 6.2 %TBHComment: ADA RECOMMENDED LIMIT 4.0 - 6.0 ADA THERAPEUTIC TARGET < 7.0 ACTION SUGGESTED > 7.0 ESTIMATED AVERAGE UJTKGFM196mt/dLTBHSpecimen (Source)Anatomical Location / LateralityCollection Method / VolumeCollection TimeReceived Time06/01/2025 10:24 AM EST06/01/2025 10:37 AM EST Narrative [facility] - 06/01/2025 11:46 AM EST Authorizing ProviderResult TypeResult StatusCorey Nahum DOCLINISYNCFinal Result Performing OrganizationAddressCity/State/ZIP CodePhone Number [facility] * (ABNORMAL) ALL CBC WITH AUTO DIFF (06/01/2025 10:24 AM EST)ComponentValueRef RangeTest MethodAnalysis TimePerformed AtPathologist SignatureTBH WBC12.5(H) 4.0 - 11.0 10 3/uLTBHTBH RBC3.84(L)4.20 - 5.40 10 6/uLTBHTBH HGB11.8(L)12.0 - 16.0 g/dLTBHTBH HCT34.3(L)36.0 - 48.0 %TBHTBH MCV89.381.0 - 99.0 fLTBHTBH MCH 30.726.7 - 34.0 pgTBHTBH MCHC34.429.9 - 35.2 g/dLTBHTBH RDW13.811.0 - 15.0 % TBHTBH FMD704235 - 450 10 3/uLTBHTBH MPV12.69.5 - 13.5 [...] Nahum DOCLINISYNCFinal Result Performing OrganizationAddressCity/State/ZIP CodePhone Number [facility] * ([facility]NORMAL) [facility] DRUG SCREEN RAPID (URINE) [...] Nahum DOCLINISYNCFinal Result Performing OrganizationAddressCity/State/ZIP CodePhone Number [facility] documented in this encounter Visit Diagnoses Not on filedocumented in this encounter Care Teams Team MemberRelationshipSpecialtyStart DateEnd Date Shannon Anna, PEAR[place] [address] [place] [address] PCP - GeneralFamily Medicine01/12/25documented as of this encounter
--- OUTSIDE RECORDS SUMMARY | 2025-06-01 15:00 | XMS_ITS | CCD ---
Author Organization [facility] Care Team Providers Care Laboratory Veterinarian Name Role Phone REQUEST, DR NONE LISTED Primary Care Unavaila ble PAY, DR DELVALLE Admitting Unavailable PAY, DR DELVALLE Attending Unavailable PAY, DR DELVALLE Consulting Unavailable ALEXEY Anna Primary Care Provider ALEXEY Anna Attending Provider ALEXEY Gurrola Attending Provider [phone] NO FAMILY, PHYSICIAN Primary Care Provider Unava ilable Maira Stoddard APRN Attending Provider [phone] SHANNON ANNA Primary Care Unavailable SonurbacheShannon harvey [...] of OnsetReaction(s) Facility (19 sources)Lidocaine; Translations: [LIDOCAINE]Drug Muqqipk45-77-6685FlagupzluSelect Medical [facility] (3 sources)pineAllergy to seznocnso36-54-3220CoyxiLgpbvhxkhOhioHealth Hardin [facility] Hospital Medications Current Medications MedicationDrug Class(es)DatesSig (Normalized)Sig (Original)[id number] 200 actuat albuterol 0.09 mg/actuat metered dose inhaler (1 source)beta2-Adrenergic AgonistStart: 82-26-8641dvrd 1 puff(s) by inhalation every four hoursdextromethorphan hydrobromide 15 mg / guaiFENesin 400 mg / pseudoephedrine hydrochloride 60 mg oraltablet (1 source)alpha-Adrenergic Agonist, Uncompetitive P-icidda-U-aspartate Receptor Antagonist, Sigma-1 AgonistStart: 33-85-6675zqbb 4 tablets by mouth every twenty-four hours as hr metFORMIN hydrochloride 500 mg extended release oral tablet (20 sources)BiguanideStart: 02-09-2025 End: 65-20-3587uxtq 2 tablets by mouth every twenty-four hours at mealtime metFORMIN XR (Glucophage-XR) 500 MG 24 hr tablet Indications: Insulin resistance Take 2 tablets (1,000 mg) by mouth in the evening. Take with meals Do not crush, chew, or split. 60 tablet 11 02/09/2025 02/09/2026 ActiveStart: 01-12-2025 End: 11-59-3932opvb 1 tablet by mouth every twenty-four hours at mealtime metFORMIN XR (Glucophage-XR) 500 MG 24 hr tablet Indications: PCOS (polycystic ovarian syndrome) Take 1 tablet (500 mg) by mouth in the evening. Take with meals Do not crush, chew, or split. 30 tablet 11 01/12/2025 01/12/2026 Active methylPREDNISolone 4 mg oral tablet (1 source)CorticosteroidStart: 76-62-6325yuha 1 tablet by mouth onceNo Name (No Known Home Meds) (2 sources)Start: 45-12-8980Ez Name (No Known Home Meds) Active August 26, 2024 12:00amondansetron 4 mg disintegrating oral tablet (1 source)Serotonin-3 Receptor AntagonistStart: 03-25-2025 End: 04-62-1364vdvw 1 tablet by mouth every six hours for nauseaondansetron ODT (Zofran-ODT) 4 MG disintegrating tablet Indications: , unspecified gestational age ([facility]) , Nausea Take 1 tablet (4 mg) by mouth every 6 (six) hours if needed for nausea or vomiting 30 tablet 2 03/25/2025 04/24/2025 Active Completed/Discontinued Medications MedicationDrug Class(es)DatesSig (Normalized)Sig (Original)hyoscyamine sulfate 0.125 mg oral tablet (5 sources)Start: 02-09-2024 End: 75-56-2479bfgh 1 tablet by mouth every six hours as neededHyoscyamine Sulfate 0.125 mg tablet Discontinued 0.125 MG PO Every 6 hours as needed February 09, 2024 12:00am August 26, 2024 3:23pmketorolac tromethamine 10 mg oral tablet (5 sources)Nonsteroidal Anti-inflammatory Drug, Cyclooxygenase InhibitorStart: 02-09-2024 End: 51-68-1522ksuu 1 tablet by mouth three times daily as neededKetorolac 10 mg tablet Discontinued 10 MG PO Three times daily as needed February 09, 2024 12:00am August 26, 2024 3:23pm Problems Active Problems Problem ClassificationProblemDateDocumented DateEpisodic/Chronic Administrative/social admission (2 sources)Patient encounter status; Translations: [Person consulting for explanation of examination or test findings]47-26-0556UhdpzzpgSuwxrfgsm disorders (7 sources)Menorrhagia; Translations: [Excessive and frequent menstruation with regular cycle]04-56-0114OssaomhXujhur and vomiting (1 source)Nausea; Translations: [Nausea]94-84-7728QjffjyclYkwdpzjzsqpj breast conditions (4 sources)Abscess of the breast and nipple; Translations: [ABSCESS OF THE BREAST AND NIPPLE]Onset: 93-94-1570QlothtbhLvsmz endocrine disorders (2 sources)Polycystic ovary syndrome; Translations: [Polycystic ovarian syndrome]06-26-9954TpxdlivAgfwz gastrointestinal disorders (1 source)Constipation, unspecified; Translations: [Constipation, unspecified] Onset: 98-95-7927DjjdopnyMzbnu gastrointestinal disorders (1 source)ConstipationOnset: 68-12-7439TqtvxtmkZbqyl nutritional; endocrine; and metabolic disorders (2 sources)Insulin resistance; Translations: [Insulin resistance]02-09-2025 ChronicOther and delivery including normal (4 sources); Translations: [Encounter for supervision of normal , unspecified, unspecified trimester]67-12-8925ZdcgfqxjTonpwrlr codes; unclassified (1 source)Gestation period, 9 weeks; Translations: [9 weeks gestation of ]96-50-6287RvcwpugaJqtuzsua codes; unclassified (2 sources)Gestation period, 14 weeks; Translations: [14 weeks gestation of ]12-03-3023SizfjcxlXgyzvye and strains (1 source)Sprain of unspecified ligament of left ankle, initial encounter; Translations: [Sprain of ankle, unspecified site]72-10-0311TnxvfuyhBmdubqkxmoju (1 source)CystOnset: 24-56-6213Niuuvhbbsuqz (1 source)STOMACH PAIN, CONSTIPATIONOnset: 12-02-2024 Past or Other Problems Problem ClassificationProblemDateDocumented DateEpisodic/ChronicAbdominal pain (8 sources)Right flank pain; Translations: [Unspecified abdominal pain]Onset: 236716-19-8781SmtfxnlwEnajxkyt of urinary tract (8 sources)Kidney stone; Translations: [Calculus of kidney]Onset: 02-12-2024 85-17-3002MlgtmqtrIpcnexyrdqvlv symptoms and ill-defined conditions (1 source)Dysuria; Translations: [Dysuria]Onset: 61-31-7855Berclrio Results Test NameValueInterpretationReference RangeFacilityUrinalysis macro (dipstick) panel (U)on 53-40-8930Okyngaxjj, UANegativeNegative - 4(70) +++ mg/dLNOMS HealthcareBlood, UANegativeNegative [...] No LMP recorded.Urinalysis macro (dipstick) panel (U)on 57-24-0601Qiqyekxwt, UA NegativeNegative - 4(70) +++ mg/dLNOMS HealthcareBlood, UANegativeNegative - 50 Jostin/mcLNOMS HealthcareClarity, UAClearNOMS HealthcareColor, UAYellowNOMS HealthcareGlucose, UANegativeNegative - 1999(110) ++++ mg/dLNOMS Healthcare Interpretation and review of laboratory resultsNormalNOMS HealthcareKetones, UA NegativeNegative - 160(16) ++++ mg/dLNOMS HealthcareLeukocytes, UANegative Negative - 500+++ Elian/mcLNOMS HealthcareNitrite, UANegativeNegative - Positive NOMS HealthcarepH, UA65 - 9NOMS HealthcareProtein, UANegativeNegative - 1999(20) ++++ mg/dLNODE HealthcareSpec Grav, UA1.0251 - 1.03NODE HealthcareUrobilinogen, UA1.00.2 - 12 mg/dLNOSaint Alexius HospitalNOMS HealthcareUS PELVIC COMPLETE W/ TVon 95-28-9645TL PELVIC COMPLETE W/ TVEXAM: US PELVIC COMPLETE [...] II, MD, PHD at 17-Feb-2025 08:05:52 AM [facility] TeleradiologyNormalNot AvailableComment on above:Order Comment: US PELVIS-TRANSVAG IF INDICATED Patient's last menstrual period was 12/27/2024.Antimullerian hormone (AMH)on 67-93-0085UKWO-MULLERIAN HORMONE1.56 ng/mL.NOMS HealthcareComment on above:For assays employing antibodies, the possibility exists for interference by heterophile antibodies in the samples.1 1.Leah Yin. Interferences in Immunoassays - still a threat. Clin. Chem. 2000; 46: 8650-2400. This test was developed and its performance characteristics determined by [employer]. It has not been cleared or approved by the Food and Drug Administration. Reference Range: Females 20 - 25y: 1.23 - 11.51 Median 4.70 AMH concentrations of >= 1.06 ng/mL is correlated with a better response to ovarian stimulation, produced more retrievable oocytes and higher odds of live according to Billy et al. Fertility and Sterility. 2010: 94:7544-5406. The current AMH test method correlates with [...] exclude an AMH-secreting ovarian tumor. Performed at: [facility] [address] [place] [id number] [place]: Ian Mitchell MD, Phone: [phone] [facility] HospitalHemoglobin a1c with eagon 39-30-9020Mpjbegv [Mass/Vol]117 mg/dL [facility] HospitalHbA1c (Bld) [Mass fraction]5.7 %High4.3 - 5.6 %[facility] Comment on above:Increased risk for diabetes: 5.7 - 6.4 diabetes: >6.4 glycemic control for adults with diabetes: <7.0 Interpretation and review of laboratory resultsAbnormalSullivan County Memorial Hospital ErivnredyaS8I with Estimated Average Gluon 46-11-7966Uxstbap [Mass/Vol]117 mg/dL NormalThe Unc Health Rex Physician GroupComment on above:Result Comment: PERFORMED BY: [place] [address] PATHOLOGIST ETL ARCHITECT PARAMJIT CHAN M.D.Performed By: #### A1C WTH eA, TSH3, CBC, T4F, FSH, HCGQNT #### [place] [address] [place] #### LH, AMH, DHEA, DHEAS #### [facility] ,HbA1c (Bld) [Mass fraction]5.7 %High4.3-5.6The [facility] Health Rex Physician GroupComment on above:Result Comment: Increased risk for diabetes: 5.7 - 6.4 diabetes: >6.4 glycemic control for adults with diabetes: <7.0Performed By: #### A1C WTH eA, TSH3, CBC, T4F, FSH, HCGQNT #### [address] #### LH, AMH, DHEA, DHEAS #### [facility] ,Anti-Mullerian Hormoneon 35-61-1721Yudi-Mullerian Hormone1.56 ng/mLNormal.The [facility] Physician GroupComment on above:Result Comment: For assays employing antibodies, the possibility exists for interference by heterophile antibodies in the samples.1 1.Leah Yin. Interferences in Immunoassays - still a threat. Clin. Chem. 2000; 46: 7865-6433. This test was developed and its performance characteristics determined by [facility]. It has not been cleared or approved by the Food and Drug Administration. Reference Range: Females 20 - 25y: 1.23 - 11.51 Median 4.70 AMH concentrations of >= 1.06 ng/mL is correlated with a better response to ovarian stimulation, produced more retrievable oocytes and higher odds of live according to Gleicher et al. Fertility and Sterility. 2010: 94:1462-4062. The current AMH test method correlates with [...] exclude an AMH-secreting ovarian tumor. Performed at: [facility] [address] [place] [address] [id number] [place]: Ian Mitchell MD, Phone: [phone] PERFORMED BY: [place] [address] PATHOLOGIST ETL ARCHITECT PARAMJIT CHAN M.D.Performed By: #### A1C WTH eA, TSH3, CBC, T4F, FSH, HCGQNT #### [facility] [address] [place] [address] #### LH, AMH, DHEA, DHEAS #### [facility] ,Basophils [#/volume] in Blood by Automated countOrdered By: Carmen Sidhu on 66-38-2356Iqjcxkzru (Bld) [#/Vol]0.0 10*3/uLNormal0.0-0.2FKindred Hospital LimaComment on above:Result Comment: PERFORMED BY: [place] [address] PATHOLOGIST ETL ARCHITECT PARAMJIT CHAN M.D.Performed By: #### A1C WTH eA, TSH3, CBC, T4F, FSH, HCGQNT #### [address] #### LH, AMH, DHEA, DHEAS #### [facility] ,Basophils/100 leukocytes in Blood by Automated countOrdered By: Carmen Sidhu on 48-39-1397Dsnrmthoj/100 WBC (Bld)0.3 %Normal.[facility] Comment on above:Performed By: #### A1C WTH eA, TSH3, CBC, T4F, FSH, HCGQNT #### [facility] [address] [place] [address] #### LH, AMH, DHEA, DHEAS #### [facility] ,CBC W Auto Differential panel (Bld)on 35-96-1486Zqxdcalpp (Bld) [#/Vol]0 10*3/uL0.0 - 0.2 10*3/uLNOMS HealthcareBasophils/100 WBC Manual cnt (Syn fld)0.3 %.NOMS HealthcareEosinophils (Bld) [#/Vol]0.2 10*3/uL0.0 - 0.45 10*3/uLNOMS HealthcareEosinophils/100 WBC Manual cnt (Syn fld)1.6 %.[facility] Erythrocyte distribution width (RBC) [Ratio]14.2 %11.9 - 15.3 %[facility] Hematocrit (Bld) [Volume fraction]42 %34.0 - 46.4 %[facility] HospitalHemoglobin (Bld) [Mass/Vol]14.1 g/dL11.8 - 15.4 g/dLLOGAN REGIONAL [facility]PITAL HealthcareInterpretation and review of laboratory resultsAbnormalLOGAN REGIONAL HOSPITAL HealthcareLymphocytes (Bld) [#/Vol]2.3 10*3/uL1.00 - 4.8 10*3/uLNOMS HealthcareLymphocytes/100 WBC Manual cnt (Syn fld) 21.4 %.[facility] HospitalH (RBC) [Entitic mass]31.7 pg24.7 - 34.3 pgHermann Area District HospitalHC (RBC) [Mass/Vol]33.6 g/dL32.0 - 35.0 g/dLFulton State HospitalMCV (RBC) [Entitic vol]94.2 fL80 - 100 fLLOGAN REGIONAL HOSPITAL HealthcareMonocytes (Bld) [#/Vol]0.9 10*3/uLHigh0.0 - 0.8 10*3/uLNOMS HealthcareMonocytes+Macrophages/100 WBC Manual cnt (Syn fld)8.8 %.[facility] HealthcareNeutrophils (Bld) [#/Vol]7.3 10*3/uL1.8 - 7.7 10*3/uLNOMS HealthcareNeutrophils/100 WBC Manual cnt (Syn fld)67.9 %.[facility] HealthcareNRBC0.1 /100{WBC}0 - 0.5 /100{WBC}[facility] HealthcarePlatelet mean volume (Bld) [Entitic vol]11.2 fLHigh6.3 - 10.7 fLLOGAN REGIONAL HOSPITAL HealthcarePlatelets (Bld) [#/Vol]313 10*3/uL150 - 450 10*3/uLNOMS HealthcareRBC LM.HPF (Urine sed) [#/Area]4.46 10*6/uL3.60 - 5.00 10*6/uLNOMS HealthcareWBC (Bld) [#/Vol]10.8 10*3/uL3.8 - 11.6 10*3/uLNOMS HealthcareWBC LM.HPF (Urine sed) [#/Area]10.8 [CFU]/mL3.8 - 11.6 [CFU]/mLNOMS Kettering Health TroyNODE HealthcareChoriogonadotropin.beta subunit [Units/volume] in Serum or PlasmaOrdered By: Carmen Sidhu on 01-19-2025 HCG.beta subunit Qnm[IU]/mLRegional Medical CenterComment on above: Approximate Approximate hCG Gestational Age Range (mIU/ml) (weeks)0.2-1 5-50 1-2 50-500 2-3 100-5,000 3-4 500-10,000 4-5 1,000-50,000 5-6 10,000-100,000 6-8 15,000-200,000 8-12 10,000-100,000Complete Blood Count Auto Diffon 01-19-2025 Mean Corpuscular HGB Conc33.6 g/nMJqjiqb06.0-35.0The [facility] Comment on above:Performed By: #### A1C WTH eA, TSH3, CBC, T4F, FSH, HCGQNT #### [facility] [address] [place] [address] #### LH, AMH, DHEA, DHEAS #### [facility] ,NRBC%0.1 /100{WBC}Normal0-0.5The [facility] Rex Physician GroupComment on above: Performed By: #### A1C WTH eA, TSH3, CBC, T4F, FSH, HCGQNT #### [facility] [address] [place] [address] [place] #### LH, AMH, DHEA, DHEAS #### [facility] ,White Blood Count10.8 [CFU]/mLNormal3.8-11.6The [facility] Comment on above:Performed By: #### A1C WTH eA, TSH3, CBC, T4F, FSH, HCGQNT #### [facility] [address] [place] [address] [place] #### LH, AMH, DHEA, DHEAS #### [facility] ,Dehydroepandrosteroneon 65-60-7510HLQX472 ng/nBMuvnww41-619Cwh [facility]lands Physician GroupComment on above:Result Comment: This test was developed and its performance characteristics determined by [facility]. It has not been cleared or approved by the Food and Drug Administration. Performed at: [address] [id number] [place]: Casandra Zavala MD, Phone: [phone] PERFORMED BY: [place] [address] PATHOLOGIST ETL ARCHITECT PARAMJIT CHAN M.D.Performed By: #### A1C WTH eA, TSH3, CBC, T4F, FSH, HCGQNT #### [address] #### LH, AMH, DHEA, DHEAS #### [facility] ,Dehydroepiandrosterone Sulfateon 63-71-4227Knitntpkztclfobsyfanaq Qxtyols002.0 ug/zSIoretf748.0-431.7The [facility] Physician [facility] CenterComment on above:Result Comment: Performed at: [facility] [id number] [place]: Wilfredo Mercedes PhD, Phone: [phone] By: #### A1C WTH eA, TSH3, CBC, T4F, FSH, HCGQNT #### [address] #### LH, AMH, DHEA, DHEAS #### [facility] ,Eosinophils [#/volume] in Blood by Automated countOrdered By: Carmen Sidhu on 75-55-0882Yftttjqkkln (Bld) [#/Vol]0.2 10*3/uLNormal0.0-0.45Reg[facility] Medical CenterComment on above:Performed By: #### A1C WTH eA, TSH3, CBC, T4F, FSH, HCGQNT #### [address] #### LH, AMH, DHEA, DHEAS #### [facility] ,Eosinophils/100 leukocytes in Blood by Automated countOrdered By: Carmen Sidhu on 68-07-7296Ymqjxanghfb/100 WBC (Bld)1.6 %Normal.[facility]ional Medical CenterComment on above:Performed By: #### A1C WTH eA, TSH3, CBC, T4F, FSH, HCGQNT #### [address] #### LH, AMH, DHEA, DHEAS #### [facility] ,Erythrocyte distribution width [Ratio] by Automated countOrdered By: Carmen Sidhu on 79-41-5044Mvtinxngssh distribution width (RBC) [Ratio]14.2 %Normal 11.9-15.3FKindred Hospital LimaComment on above:Performed By: #### A1C WTH eA, TSH3, CBC, T4F, FSH, HCGQNT #### [address] #### LH, AMH, DHEA, DHEAS #### [facility] ,Erythrocytes [#/volume] in Blood by Automated countOrdered By: Carmen Sidhu on 40-50-9288DDT (Bld) [#/Vol]4.46 10*6/uLNormal3.60-5.00Reg[facility] Medical CenterComment on above:Performed By: #### A1C WTH eA, TSH3, CBC, T4F, FSH, HCGQNT #### [place] [address] [place] #### LH, AMH, DHEA, DHEAS #### [facility] ,Follicle Stimulating Hormoneon 28-10-5432Jcwhjcqt Stimulating Hormone3.6 m[iU]/mLNormalThe [facility] Rex Physician GroupComment on above:Result Comment: FEMALE NORMALS (PREMENOPAUSE) MID-FOLLICULAR PHASE: 3.9-8.8 mIU/mL MID-CYCLE PEAK: 4.5-22.5 mIU/mL MID-LUTEAL PHASE: 1.8-5.1 mIU/mL FEMALE NORMALS (POSTMENOPAUSE): 16.7-113.6 mIU/mL MALE NORMALS: 1.3-19.3 mIU/mLPerformed By: #### A1C WTH eA, TSH3, CBC, T4F, FSH, HCGQNT #### [address] #### LH, AMH, DHEA, DHEAS #### [facility] ,Follitropin [Units/volume] in Serum or PlasmaOrdered By: Carmen Sidhu on 14-02-4758Qmieubmdvio Qn3.6 m[IU]/mLRegional Medical CenterComment on above:FEMALE NORMALS (PREMENOPAUSE) MID-FOLLICULAR PHASE: 3.9-8.8 mIU/mL MID- CYCLE PEAK: 4.5-22.5 mIU/mL MID-LUTEAL PHASE: 1.8-5.1 mIU/mLFEMALE NORMALS (POSTMENOPAUSE): 16.7-113.6 mIU/mLMALE NORMALS: 1.3-19.3 mIU/mLHCG,Quantitative on 40-45-5389BAJ,Quantitative<0.60NoCaroMont Regional Medical Center - [facility] Holly Physician GroupComment on above:Result Comment: Approximate Approximate hCG Gestational Age Range (mIU/ml) (weeks) 0.2-1 5-50 1-2 50-500 2-3 100-5,000 3-4 500-10,000 4-5 1,000-50,000 5-6 10,000-100,000 6-8 15,000-200,000 8-12 10,000-100,000 PERFORMED BY: [place] [address] PATHOLOGIST ETL ARCHITECT PARAMJIT CHAN M.D.Performed By: #### A1C WTH eA, TSH3, CBC, T4F, FSH, HCGQNT #### [address] #### LH, AMH, DHEA, DHEAS #### [facility] ,Hematocrit [Volume Fraction] of Blood by Automated countOrdered By: Carmen Sidhu on 43-20-5451Zwxbillbzg (Bld) [Volume fraction]42.0 %Jbaoim20.0-46.4FKindred Hospital LimaComment on above:Performed By: #### A1C WTH eA, TSH3, CBC, T4F, FSH, HCGQNT #### [facility] [address] [place] [address] #### LH, AMH, DHEA, DHEAS #### [facility] ,Hemoglobin [Mass/volume] in BloodOrdered By: Carmen Sidhu on 01-19-2025 Hemoglobin (Bld) [Mass/Vol]14.1 g/tXJfvlur48.8-15.4FKindred Hospital LimaComment on above:Performed By: #### A1C WTH eA, TSH3, CBC, T4F, FSH, HCGQNT #### [address] #### LH, AMH, DHEA, DHEAS #### [facility] ,Leukocytes [#/volume] corrected for nucleated erythrocytes in Blood by Automated counOrdered By: Carmen Sidhu on 94-26-9356FDR corrected for nucl RBC Auto (Bld) [#/Vol]10.8 10*3/uL3.8-11.6FKindred Hospital Lima Leukocytes [#/volume] in Blood by Automated countOrdered By: Carmen Sidhu on 06-55-5926IZS (Bld) [#/Vol]10.8 10*3/uLNormal3.8-11.6FKindred Hospital LimaComment on above:Performed By: #### A1C WTH eA, TSH3, CBC, T4F, FSH, HCGQNT #### [facility] [address] [place] [address] [place] #### LH, AMH, DHEA, DHEAS #### [facility] ,Luteinizing Hormoneon 07-40-9198Wzrprewrwhb Hormone3.3 m[iU]/mLNormal.The [facility] Physician GroupComment on above:Result Comment: Adult Female Range Follicular phase 2.4 - 12.6 Ovulation phase 14.0 - 95.6 Luteal phase 1.0 - 11.4 Postmenopausal 7.7 - 58.5 Performed at: - [facility] [id number] [place]: Wilfredo Mercedes PhD, Phone: [phone] By: #### A1C WTH eA, TSH3, CBC, T4F, FSH, HCGQNT #### [facility] [address] [place] [address] #### LH, AMH, DHEA, DHEAS #### [facility] ,Lymphocytes [#/volume] in Blood by Automated countOrdered By: Carmen Sidhu on 85-71-5397Gtqqsnckcfo (Bld) [#/Vol]2.3 10*3/uLNormal1.00-4.8Reg[facility] Medical CenterComment on above:Performed By: #### A1C WTH eA, TSH3, CBC, T4F, FSH, HCGQNT #### [place] [address] [place] #### LH, AMH, DHEA, DHEAS #### [facility] ,Lymphocytes/100 leukocytes in Blood by Automated countOrdered By: Carmen Sidhu on 86-42-1027Yxzuedkwict/100 WBC (Bld)21.4 %Normal.[facility] Medical CenterComment on above:Performed By: #### A1C WTH eA, TSH3, CBC, T4F, FSH, HCGQNT #### [place] [address] [place] #### LH, AMH, DHEA, DHEAS #### [facility] ,MCH [Entitic mass] by Automated countOrdered By: Carmen Sidhu on 72-05-9860RKL (RBC) [Entitic mass]31.7 wyCwpwfb33.7-34.3FKindred Hospital Lima Comment on above:Performed By: #### A1C WTH eA, TSH3, CBC, T4F, FSH, HCGQNT #### [address] [place] [address] [place] #### LH, AMH, DHEA, DHEAS #### [facility] ,[facility]ITALC Auto (RBC) [Mass/Vol]Ordered By: Carmen Sidhu on 84-03-9192VVTB (RBC) [Mass/Vol]33.6 g/dL32.0-35.0Reg[facility] Medical CenterMCV [Entitic volume] by Automated countOrdered By: Carmen Sidhu on 18-53-8294TVQ (RBC) [Entitic vol]94.2 dUNhjvom23-981LcbglwxlfRegional Medical CenterComment on above:Performed By: #### A1C WTH eA, TSH3, CBC, T4F, FSH, HCGQNT #### [facility] [address] [place] [address] #### LH, AMH, DHEA, DHEAS #### [facility] ,Monocytes [#/volume] in Blood by Automated countOrdered By: Carmen Sidhu on 51-17-0142Yxgxgagoe (Bld) [#/Vol]0.9 10*3/uLHigh0.0-0.8Reg[facility] Medical CenterComment on above:Performed By: #### A1C WTH eA, TSH3, CBC, T4F, FSH, HCGQNT #### [address] #### LH, AMH, DHEA, DHEAS #### [facility] ,Monocytes/100 leukocytes in Blood by Automated countOrdered By: Carmen Sidhu on 95-61-5481Sfccxccio/100 WBC (Bld)8.8 %Normal.[facility] Comment on above:Performed By: #### A1C WTH eA, TSH3, CBC, T4F, FSH, HCGQNT #### [facility] [address] [place] [address] #### LH, AMH, DHEA, DHEAS #### [facility] ,Neutrophils [#/volume] in Blood by Automated countOrdered By: Carmen Sidhu on 21-33-8585Uxipiaftucj (Bld) [#/Vol]7.3 10*3/uLNormal1.8-7.7FKindred Hospital LimaComment on above:Performed By: #### A1C WTH eA, TSH3, CBC, T4F, FSH, HCGQNT #### [facility] [address] [place] [address] [place] #### LH, AMH, DHEA, DHEAS #### [facility] ,Neutrophils/100 leukocytes in Blood by Automated countOrdered By: Carmen Sidhu on 58-40-6107Wstpqipkjvn/100 WBC (Bld)67.9 %Normal.[facility] Medical CenterComment on above:Performed By: #### A1C WTH eA, TSH3, CBC, T4F, FSH, HCGQNT #### [facility] [address] [place] [address] #### LH, AMH, DHEA, DHEAS #### [facility] ,Nucleated erythrocytes [Presence] in Blood by Automated countOrdered By: Carmen Sidhu on 18-46-3844Tyulxrbre RBC Auto Ql (Bld)0.1 /100{WBC}0-0.5FKindred Hospital LimaPlatelet mean volume [Entitic volume] in Blood by Automated countOrdered By: Carmen Sidhu on 51-04-7561Lfkpisue mean volume (Bld) [Entitic vol]11.2 fLHigh6.3-10.7FKindred Hospital LimaComment on above:Performed By: #### A1C WTH eA, TSH3, CBC, T4F, FSH, HCGQNT #### [facility] [address] [place] [address] [place] #### LH, AMH, DHEA, DHEAS #### [facility] ,Platelets [#/volume] in Blood by Automated countOrdered By: Carmen Sidhu on 29-84-8076Kkztevnvr (Bld) [#/Vol]313 10*3/tYGtndnw889-099GvsspcpgcRegional Medical CenterComment on above:Performed By: #### A1C WTH eA, TSH3, CBC, T4F, FSH, HCGQNT #### [facility] [address] [place] [address] #### LH, AMH, DHEA, DHEAS #### [facility] ,Thyrotropin [Units/volume] in Serum or PlasmaOrdered By: Carmen Sidhu on 03-31-4045BKM Qn1.51 m[IU]/LNormal0.45-5.33[facility] Comment on above:Performed By: #### A1C WTH eA, TSH3, CBC, T4F, FSH, HCGQNT #### [facility] [address] [place] [address] #### LH, AMH, DHEA, DHEAS #### [facility] ,Thyroxine (T4) free [Mass/volume] in Serum or PlasmaOrdered By: Carmen Sidhu on 89-78-2220Afvk T4 [Mass/Vol]0.82 ng/dLNormal0.61-1.12Regional Medical CenterComment on above:Performed By: #### A1C WT eA, TSH3, CBC, T4F, FSH, HCGQNT #### [address] #### LH, AMH, DHEA, DHEAS #### [facility] ,POCT NURSING URINE MACROSCOPIC UAon [id number] NURNegativeNormal NegativeAvita Health System Galion HospitalComment on above:Performed By: #### NUM #### [facility] ([facility]) [address] [place] [id number] VIRBLOOD/HGB NURTraceAbnormalNegativeAvita Health System Galion HospitalComment on above:Performed By: #### NUM #### [facility] ([address] [id number] VIRGLUCOSE NURNegativeNormalNegativeAvita Health System Galion Hospital Comment on above:Performed By: #### NUM #### [facility] ([address] [place] [address] VIRKETONES NURNegativeNormalNegMercer County Community Hospital Comment on above:Performed By: #### NUM #### [facility] ([address] [place] [address] VIRLEUKOCYTE ESTERASE NURSmallAbnormalNegativeAvita Health System Galion HospitalComment on above:Performed By: #### NUM #### [facility] ([address] [address] VIRNITRITE NURNegativeNormalNegMercer County Community Hospital Comment on above:Performed By: #### NUM #### [facility] ([address] [address] VIRPH NUR5.9Fzbxhm9.0, 6.0, 6.5, 7.0, 7.5, 8.0, 8.5, 5.5 [facility] Galion HospitalComment on above:Performed By: #### NUM #### [address] [address] VIRPROTEIN NURNegativeNormalNegMercer County Community Hospital Comment on above:Performed By: #### NUM #### [address] [place] [address] VIRSPECIFIC GRAVITY STIVEN>=1.768Uzbyoqqc5.010, 1.015, 1.020, 1.025Avita Health System Galion HospitalComment on above:Performed By: #### NUM #### [address] [place] [address] VIRUROBILINOGEN NUR0.2 E.U./dLBrecksville [facility] Comment on above:Performed By: #### NUM #### [address] [address] VIRPOCT , URINE (NUCG)on 58-56-4298Ltkt HCG ( test) Ql (U)NegativeNormalNegativeAvita Health System Galion HospitalComment on above:Performed By: #### NUCG #### [facility] [address] [place] [address]. [place] [address] VIRXR ABDOMEN COMP DECUB ERECTon 70-04-7603TW ABDOMEN COMP DECUB ERECTXR ABDOMEN COMP DECUB ERECT EXAM: XR ABDOMEN COMP DECUB ERECT INDICATION: Constipation COMPARISON: None TECHNIQUE: 5 views of the abdomen were obtained FINDINGS/IMPRESSION: Levoconvex curvature of the thoracolumbar spine. Nonobstructive bowel gas pattern. Moderate fecal burden seen throughout the colon but most pronounced along the right hemicolon. Finalized by Bubba Bower on 12/02/2024 5:52 PMNormalAvita Health System Galion Hospital X-ray reportOrdered By: Mayur Marie on 23-92-1383Geojy reportREGENCY H[facility] [place] [address] [place] [address] XRay Report Signed Patient: Tanya Morales MR#: [id number] : 2000 Acct:[id number] Age/Sex: 23 / F ADM Date: 5 Loc: XDUCLY Room: Type: [facility] Attending Dr: Maira Stoddard APRN Copies to: [...] Marie Jr. D.ORobert08/26/2024 2:43 PM Dictation Location: [place] [address] Transcribed By: LILY 08/26/24 1443 Dictated By: Mayur Marie Jr, DO 08/26/24 144 Signed By: 08/26/24 144 [facility]XR [facility] min 3V*on 26-24-9163YS ankle LT min 3V*[facility] [place] [address] [place] [address] XRay Report Signed Patient: Tanya Morales MR#: [id number] : 2000 Acct:[id number] Age/Sex: 23 / F ADM Date: 08/26/24 Loc: XDUCLY Room: Type: [facility] Attending Dr: Maira Stoddard APRN Copies to: [...] Marie Jr., DRobertORobert08/26/2024 2:43 PM Dictation Location: [place] [address] Transcribed By: [facility] 08/26/241442 Dictated By: Mayur Marie Jr, DO 08/26/24 144 Signed By: 08/26/[address] [place] [address] Physician GroupUrine Cultureon 04-29-2024 Bacteria identified Cx Nom (U)>100,000 colonies/ml mixed bacterial skin contaminants 2 Days PERFORMED BY: [place] [address] PATHOLOGIST ETL ARCHITECT JASON TALAVERA M.D.[facility] Physician [facility]ner Medical CenterComment on above:Performed By: #### A1C WTH eA, TSH3, CBC, T4F, FSH, HCGQNT #### [place] [address] [place] #### LH, AMH, DHEA, DHEAS #### [facility] ,[place] renal BIon 27-31-0901VJ renal [facility] Main [place] [address] [place] [address] Ultrasound Report Signed Patient: Tanya Morales MR#: [id number] : 2000 Acct:[id number] Age/Sex: 23 / F ADM Date: 02/12/24 Loc: Room: Type: [facility] Attending Dr: Shannon Anna APRN, NP-C Ordering [...] Palomo Florence M.D.02/12/2024 6:47 PM Dictation Location: [place] [address] Tech: Breann Easton Transcribed By: [facility] 02/12/241846 Dictated By: Palomo Florence DO 02/12/241845 Signed By: 02/12/[address] [place] [address] Physician Group Vital Signs Date TimeVital SignValuePerforming LyvfvvashUuskdapo15-76-0742 09:31-0400Body mass index (BMI) [Ratio]39.51 kg/p8OckdqqitCammy Cruz FINANCE LECTURER Work Phone: [facility] HospitalBqaraagytf42-74-1953 09:31-0400Body ukxcel220.48 kgCammy Cruz FINANCE LECTURER Work Phone: noSaint Alexius HospitalKjayogxhss35-41-7242 09:31-0400Diastolic blood myhmefbk87 mm[Hg]Cammy Cruz NP Work Phone: [phone] [place], [place] 7484010-29-2025 09:31-0400Systolic blood mm[Hg]Cammy Anthony FINANCE LECTURER Work Phone: [phone] [place], [place] [address]Svlhqkrfec21-54-9807 11:00-0400Body mass index (BMI) [Ratio]39.61 kg/p7DtkxgCentral Park Hospital09-26-2025 11:00-0400Body weight 128.82 kgCentral Park Hospital09-26-2025 11:00-0400Diastolic blood mm[Hg][facility]09-26-2025 11:00-0400Systolic blood ujkaofyb785 mm[Hg][facility]08-13-2025 14:20-0400Body czardj672.3 cmCorey Nahum DO Work Phone: [phone] [place], [place] [address]Qsqogvterg03-71-5344 14:20-0400Body mass index (BMI) [Ratio]39.05 kg/f2Bqhzx Nahum DO Work Phone: [phone] [place], [place] [address]Okpeomskhw17-31-5519 14:20-0400Body nqfqub655.01 kgCorey Nahum DO Work Phone: [phone] [place], [place] [address]Huhfjoomce12-42-9647 14:20-0400Diastolic blood uxhauifx89 mm[Hg]Carmen Nahum DO Work Phone: [phone] [place], [place] [address]Rjearidbdr56-22-4542 14:20-0400Systolic blood gtuevcfu858 mm[Hg]Carmen Nahum DO Work Phone: [phone] [place], [place] [address]Khtbasxcfi71-32-6958 13:04-0400Diastolic blood fkqhneun31 mm[Hg]Carmen Nahum DO Work Phone: [phone] [place], [place] [address]Ozhdtxdlvh94-34-7490 13:04-0400Systolic blood efcascbw661 mm[Hg]Carmen Nahum DO Work Phone: [phone] [place], [place] [address]Bjwfryzwac95-77-8724 13:00-0400Body trfslo983.3 cmCorey Nahum DO Work Phone: [phone] [place], [place] [address]Ogydgcrimo07-80-8210 13:00-0400Body mass index (BMI) [Ratio]39.54 kg/b3Byuxx Nahum DO Work Phone: [facility] HospitalHpazhidudd10-38-3311 13:00-0400Body zoxodm070.59 kgCorey Nahum DO Work Phone: [facility] HospitalRlphbgnjqb12-22-5167 14:19-0500Body oqqvdb391.34 cmPHYSICIAN [facility]02-27-2025 14:19-0500Body mass index (BMI) [Ratio]36.9 kg/u8ZPPSIWGOQ [facility]02-27-2025 14:19-0500Body ustobdcrxkm12.5 [degF]PHYSICIAN NO [facility]02-27-2025 14:19-0500Body bfnbas650.2 kg PHYSICIAN [facility]02-27-2025 14:19-0500 Diastolic blood mcevejrp80 mm[Hg]PHYSICIAN NO [facility]02-27-2025 14:19-0500Heart osns229 /minPHYSICIAN [facility]02-27-2025 14:19-0500Respiratory rate16 /minPHYSICIAN [facility]02-27-2025 14:19-3743HxA2% (BldA) [Mass fraction]98 %PHYSICIAN [facility]02-27-2025 14:19-0500Systolic blood hixsalmf982 mm[Hg]PHYSICIAN NO [facility]08-12-2024 13:17-0400Body eylehl223.34 Bhupinder Anna Work Phone: [facility]08-12-2024 13:17-0400 Body mass index (BMI) [Ratio]38.5 kg/m2ALEXEY Anna Work Phone: [facility]08-12-2024 13:17-0400 Body trkmet466.19 kgALEXEY Anna Work Phone: [facility]08-12-2024 13:17-0400 Diastolic blood deyrvnpy58 mm[Hg]ALEXEY Ortega Shoshana Work Phone: [facility]08-12-2024 13:17-0400 Heart rate93 /minAPRMonica Ortega Mallyr Work Phone: [facility]08-12-2024 13:17-0400 SaO2% (BldA) [Mass fraction]99 %TRACK HELPERMonica Ortega Mallyr Work Phone: [facility]08-12-2024 13:040 Systolic blood uxczgxii293 mm[Hg]TRACK HELPERMonica Ortega Mallyr Work Phone: [facility] Encounters Encounter DateEncounter TypeCare ProviderFacilityStart: 04-27-2025 End: 84-86-8095Oamdel flowsheetKromairaa Anthony FINANCE LECTURER Work Phone: [facility]BGYNStart: 04-27-2025 End: 40-02-2470Wkayqt flowsheetKristina Anthony FINANCE LECTURER Work Phone: [facility]BGYNStart: 04-27-2025 End: 60-17-4081Prnlfcgc flow sheetKristina Anthony FINANCE LECTURER Work Phone: [facility]BGYNComment on above:Second trimester ([facility]); 14 weeks gestation of ([facility])Start: 04-27-2025 End: 35-55-7060cdtclrrdlgUVHHJFKS EBERLYNot AvailableStart: 03-25-2025 End: 97-81-1732npqbcexyrxNnyks Nurse [facility] Bcp ObNOMS [facility]on OBGYNComment on above:[place]: 3i2mKbjev: 02-16-2025 End: 18-14-0638vdlntountsIVDNP FAZIONot AvailableStart: 02-09-2025 End: 77-30-1352Fmyvcf outpatient visit 15 minutesCorey Nahum DO Work Phone: [facility]BGYNComment on above:Encounter to discuss test results; Menorrhagia with regular cycle; Insulin resistanceStart: 02-09-2025 End: 02-49-3169Awqggq flowsheetCorey Nahum DO Work Phone: [facility]BGYNStart: 02-09-2025 End: 97-61-0242Fbspmn flowsheetCorey Nahum DO Work Phone: [facility]BGYNStart: 02-09-2025 End: 56-20-6357nuynizdggmZAXOO FAZIONot AvailableStart: 01-19-2025 End: 66-83-2205Sikgxfob Result EncounterCorey Nahum DO Work Phone: noMS External Department UnsolicitedStart: 01-19-2025 End: 04-08-1026Unmpmcgf Result EncounterCorey Nahum DO Work Phone: noms External Department UnsolicitedStart: 01-19-2025 End: 30-85-0394Svzobha encounter procedureCorey Nahum-Lab [place] Work Phone: Start: 01-19-2025 End: 56-88-6342nendkrwqkuJOVCQZWAS NO [facility] Work Phone: Start: 01-12-2025 End: 37-40-7035Jtiikp flowsheetCorey Nahum DO Work Phone: [facility] BCP OBStart: 01-12-2025 End: 36-59-4429Mcbtwt flowsheetCorey Nahum DO Work Phone: [facility] OBStart: 01-12-2025 End: 41-59-1579Khegdihe flow sheetCorey Nahum DO Work Phone: [facility] BCP OBComment on above:Menorrhagia with regular cycle; Dysmenorrhea; PCOS (polycystic ovarian syndrome)Start: 01-12-2025 End: 27-92-2365aybouweeneLZWMG FAZIONot AvailableStart: 80-66-4465Zol-patient / Non-visitCatherine Hamzah SYSTEMS TEST ANALYST-FPG [facility] Work Phone: Start: 12-02-2024 End: 01-07-3100Izgdjvpct department patient visitSHANNON Hartmann [facility] Hollywoodtart: 08-26-2024 End: 76-69-2364Hckcmvz encounter procedurePHYSICIAN NO [facility] [place] Work Phone: Start: 08-26-2024 End: 01-87-2240tftxkzpeugOJUJDSYKA NO [facility] Work Phone: Start: 04-29-2024 End: 71-74-5667kchaofzscbUPIP Jennifer Rohrbacher Work Phone: [facility] Work Phone: Start: 04-29-2024 End: 22-53-3772Kwtqrzni ReferredAPRMonica Anna Work Phone: [facility]-Lab [place] Work Phone: Start: 93-94-7533bjeimqwvpqNzsbjlss:EU BellevueStart: 02-12-2024 End: 67-22-4496Gsxvavw encounter procedureAPRMonica Anna Work Phone: [facility]-Ultrasound [place] Work Phone: Start: 02-12-2024 End: 21-12-5428egkextypjzSSUL Jennifer Rohrbacher Work Phone: [facility] Work Phone: Start: 02-09-2024 End: 13-06-6103Aamhdxb encounter procedureAPRMonica Anna Work Phone: [facility] Work Phone: Start: 07-12-2022 End: 76-74-3755svqywvgeiiFK NONE LISTED REQUESTFacility:H1 Procedures DateProcedureProcedure DetailPerforming ClinicianStart: 08-63-7164Fdzpd dip stick/tablet rgnt non-auto w/o micrscAc Cruz NP Work Phone: Start: 38-05-6910Tnjkv dip stick/tablet rgnt non-auto w/o micrscpCorey Nahum DO Work Phone: Start: 04-32-6623Kzafxeti blood count with white cell differential, automatedCorey Nahum DO Work Phone: Start: 10-28-5799Xcjfymckpn glycosylated h5yYebsg Nahum DO Work Phone: Start: 68-15-9666S-ray of left anklePHYSICIAN NO FAMILYStart: 02-92-7580Wuubtbgmdpsfoey of bilateral kidneysAPRN Shannon Shoshana Work Phone: Plan of Treatment DateCare ActivityDetailAuthorStart: 05-25-2025 End: 52-79-6395Hvcpwjp encounter zmwryxokw28/26/2025 2:10 PM EST Routine [facility] [address] [place], [id number] Carmen Sidhu DO [address] [place] [address] [facility] OBGYNStart: 04-27-2025 End: 20-08-5653Dwgaquy encounter /29/2025 9:20 AM EDT Routine [facility] LINDN [address] [place], [id number] Cammy Cruz NP [address] [place] [address] Valeria RAZA Comment on above:ArrivedStart: 04-26-2025 End: 09-79-7572Sbcvlzc encounter /28/2025 11:40 AM EDT Routine [facility] [address] [place] [address] Carmen Sidhu DO [address] [place] [address] NOMDevonte [place] OBGYNStart: 03-25-2025 End: 45-42-2501SKU/RhABO/Rh Lab Routine Missed menses , unspecified gestational age ([facility]) Expected: 03/25/2025 (Approximate), Expires: 03/25/2026NODE HealthcareComment on above:Expected: 03/25/2025 (Approximate), Expires: 03/25/2026Start: 03-25-2025 End: 52-16-6482Fcinf type and Indirect antibody screen panel - BloodType and screen Lab Routine Missed menses , unspecified gestational age ([facility]) Expected: 03/25/2025 (Approximate), Expires: 03/25/2026[facility] Work Phone: comment on above:Expected: 03/25/2025 (Approximate), Expires: 03/25/2026Start: 03-25-2025 End: 45-87-7856Rxamq of abuse panel - Urine by Screen methodRapid drug screen, urine Lab Routine , unspecified gestational age ([facility]) Encounter for supervision of normal first in first trimester ([facility]) Expected: 03/25/2025 (Approximate), Expires: 03/25/2026NODE HealthcareComment on above: Expected: 03/25/2025 (Approximate), Expires: 03/25/2026Start: 10-56-8865WFRPZ-19 Vaccine ( season)COVID-19 Vaccine ( season)[facility] HealthcareStart: 59-33-9031Ddumhxubg vaccinationInfluenza Vaccine (#1)[facility] HealthcareStart: 02-16-2025 End: 18-16-7405Mwskkticxsjn / ancillary services sxloefgivs66/20/2025 9:00 AM EDT Ancillary Procedure [facility] [address] [place] [address] JEEQ [facility] OBGYNStart: 02-09-2025 End: 66-97-0437Bkbdccv encounter procedureNOMS BCP OBComment on above:Arrived Start: 02-08-2025 End: 69-46-9309Ewnqovppeakr / ancillary services boglgfvgfu88/12/2025 2:30 PM EDT Ancillary Procedure [facility] [address] [place] [address] XUHN [facility] OBGYNStart: 01-26-2025 End: 20-24-3997Urccqcirldug / ancillary services gznuqscsuz73/30/2025 2:30 PM EDT Ancillary Procedure [facility] OB [address] [place] [address] ODWL [facility] OBStart: 39-20-5134Qotbvmcbregyrzhcqktiin measurementLakeHealth TriPoint Medical Centertart: 01-19-2025 Dehydroepiandrosterone sulfate levelLakeHealth TriPoint Medical Centertart: 94-54-5404FfadpjxeuLakeHealth TriPoint Medical Centertart: 01-12-2025 End: 71-35-4451Qhvpasbtynmrc hormone (AMH)Antimullerian hormone (AMH) Lab Routine Menorrhagia with regular cycle Dysmenorrhea Expected: 01/12/2025 (Approximate), Expires: 01/12/2026NODE HealthcareComment on above:Expected: 01/12/2025 (Approximate), Expires: 01/12/2026Start: 01-12-2025 End: 93-65-1026KPPYRDJK Lab Routine Menorrhagia with regular cycle Dysmenorrhea PCOS (polycystic ovarian syndrome) Expected: 01/12/2025 (Approximate), Expires: 01/12/2026NOMS HealthcareComment on above:Expected: 01/12/2025 (Approximate), Expires: 01/12/2026Start: 01-12-2025 End: 34-18-4253IX PelvisUS Pelvis w/ TV Imaging Routine Menorrhagia with regular cycle Dysmenorrhea PCOS (polycystic ovarian syndrome) Expected: 01/12/2025, Expires: 01/12/2026NODE HealthcareComment on above:Expected: 01/12/2025, Expires: 01/12/2026Start: 01-12-2025 End: 28-95-9210Aahgdnd encounter fbvzhuizj75/16/2025 1:00 PM EDT Office Visit [facility] OB [address] [place] [address] Carmen Sidhu, DO [address] [place] [address] ArrivedNOVAN NESS CAMPUS OBComment on above:ArrivedStart: 51-92-8847Esqkoras identified in Urine by CultureUrine CultureLakeHealth TriPoint Medical Centertart: 89-40-5065Pnxqeopem B Vaccines (1 of 3 - 19+ 3-dose series)Hepatitis B Vaccines (1 of 3 - 19+ 3-dose series)[facility] HealthcareStart: 05-57-5785Jtzrwxdacsxrt B Vaccine (1 of 2 - Standard)Meningococcal B Vaccine (1 of 2 - Standard)[facility]OMS HealthcareStart: 29-05-9235FDR Vaccines (1 - 3-dose series) HPV Vaccines (1 - 3-dose series)[facility] HealthcareStart: 15-97-1172Eppxxou of varicella vaccinationVaricella Vaccines (1 of 2 - 13+ 2-dose series)NOMS HealthcareStart: 69-80-3889FKsT/Tdap/Td Vaccines (1 - Tdap)DTaP/Tdap/Td Vaccines (1 - Tdap)NOMS HealthcareStart: 51-88-4580MVJ Vaccines (1 of 1 - Standard series)MMR Vaccines (1 of 1 - Standard series)NOMS HealthcareBacteria identified in Urine by CultureUrine culture Microbiology Routine Missed menses Ordered: 03/25/2025NODE HealthcareComment on above:Ordered: 5CBC W Auto Differential panel - BloodCBC and differential Lab Routine Menorrhagia with regular cycle Dysmenorrhea PCOS (polycystic ovarian syndrome) Ordered: 01/12/2025NODE HealthcareComment on above:Ordered: 5CBC W Auto Differential panel - BloodCBC and differential Lab Routine Missed menses , unspecified gestational age ([facility]) Ordered: 03/25/2025[facility] HealthcareComment on above:Ordered: 03/25/20255470KGMR-zsijavzMSFF-stlgkvz Lab Routine Menorrhagia with regular cycle Dysmenorrhea PCOS (polycystic ovarian syndrome) Ordered: 01/12/2025[facility] HealthcareComment on above:Ordered: 01/12/2025 Follicle stimulating hormoneFollicle stimulating hormone Lab Routine Menorrhagia with regular cycle Dysmenorrhea PCOS (polycystic ovarian syndrome) Ordered: 01/12/2025[facility] HealthcareComment on above:Ordered: 01/12/2025Glucose measurement estimated from glycated hemoglobinRegional Medical CenterhCG, quantitative, pregnancyhCG, quantitative, Lab Routine Menorrhagia with regular cycle Dysmenorrhea PCOS (polycystic ovarian syndrome) Ordered: 01/12/2025[facility] Healthcare Work Phone: comment on above:Ordered: 01/12/2025Hemoglobin A1c/Hemoglobin.total in BloodHemoglobin A1c Lab Routine Menorrhagia with regular cycle Dysmenorrhea Ordered: 01/12/2025[facility] HealthcareComment on above:Ordered: 01/12/2025Hemoglobin A1c/Hemoglobin.total in BloodRegional Medical CenterHemoglobin A1c/Hemoglobin.total in BloodHemoglobin A1c Lab Routine Missed menses , unspecified gestational age ([facility]) Ordered: 03/25/2025[facility] HealthcareComment on above:Ordered: 03/25/2025Hepatitis B virus surface Ag [Presence] in Serum or Plasma by ImmunoassayHepatitis B surface antigen Lab Routine Missed menses , unspecified gestational age ([facility]) Ordered: 03/25/2025[facility] HealthcareComment on above:Ordered: 03/25/2025Hepatitis C virus Ab [Presence] in Serum or Plasma by ImmunoassayHepatitis C antibody Lab Routine Missed menses , unspecified gestational age ([facility]) Ordered: 03/25/2025[facility] HealthcareComment on above:Ordered: 03/25/2025HIV-1/HIV-2 antigen/antibody combination immunoassayHIV-1 and HIV-2 antibodies Lab Routine Missed menses , unspecified gestational age ([facility]) Ordered: 03/25/2025[facility] HealthcareComment on above:Ordered: 03/25/2025Luteinizing hormone Luteinizing hormone Lab Routine Menorrhagia with regular cycle Dysmenorrhea PCOS (polycystic ovarian syndrome) Ordered: 01/12/2025[facility] HealthcareComment on above:Ordered: 01/12/2025Luteinizing hormoneLuteinizing hormone Lab Routine 01/19/2025 12:40 PM [facility] Healthcare Work Phone: Lutropin [Units/volume] in Serum or [facility] Memorial HospitalMullerian inhibiting substance [Mass/volume] in Serum or [facility] Memorial HospitalReagin Ab [Presence] in Serum by RPRRPR Lab Routine Missed menses , unspecified gestational age ([facility]) Ordered: 03/25/2025[facility] HealthcareComment on above:Ordered: 03/25/2025Rubella antibody, IgGRubella antibody, IgG Lab Routine Missed menses , unspecified gestational age ([facility]) Ordered: 03/25/2025[facility] HealthcareComment on above:Ordered: 03/25/2025Thyrotropin [Units/volume] in Serum or PlasmaTSH Lab Routine Menorrhagia with regular cycle Dysmenorrhea PCOS (polycystic ovarian syndrome) Ordered: 01/12/2025[facility] HealthcareComment on above:Ordered: 01/12/2025 Thyrotropin [Units/volume] in Serum or PlasmaTSH Lab Routine 01/19/2025 12:40 PM [facility] Healthcare Work Phone: Thyroxine (T4) free [Mass/volume] in Serum or Plasma T4, free Lab Routine Menorrhagia with regular cycle Dysmenorrhea PCOS (polycystic ovarian syndrome)Ordered: 01/12/2025[facility] HealthcareComment on above: Ordered: 01/12/2025Urine [facility] HospitalXR Ankle - left GE 3 [facility] Immunizations Immunization DateImmunizationNotesCare KzeasjwyEfxhekgi00-42-8356kkptbkiud virus vaccine, unspecified formulationCorey Nahum DO Work Phone: [facility] Healthcare Payers DatePayer CategoryPayerPolicy [id number] [id number] 2.0.1.423841.3.57[id number] 2.0.1.322197.3.57[id number] 2.0.1.887212.3.57[id number] 2.0.1.542687.3.57[id number] 2.0.1.959259.3.57[id number] 2.0.1.757418.3.57[id number] 2.0.1.113654.3.57[id number] 2.0.1.140028.3.57[id number] 2.840.1.336783.3.579.2.032509-76-3044Egml-[id number] 2.840.1.5[id number] 2.16.840.1.228817.3.579.2.531 [id number] 2.16.840.1.035262.3.579.2.531 Social History DateTypeDetailFacilityStart: 02-09-2024 End: 32-54-7764Oyyyxiy smoking status NHISSmoker (finding)[facility] Centertart: 77-56-2753Vbr Assigned At BirthFeProtestant Deaconess Hospitaltart: 08-26-2024 End: 98-31-3955YcyWudptu (finding)[facility] Medical CenterTobacarnegie [facility] [place] smoking status NHISTobacco smoking consumption unknownLOGAN REGIONAL [facility]OSPITAL HealthcareStart: 28-61-4668Mdd assigned at birthNot on [facility] HospitalStart: 18-24-8711Xgotmh identityIdentifies as female gender (finding)[facility] HealthcareSexual orientation Not on [facility] Centertart: 99-35-4604Euugvhh smoking status NHISSmokes tobacco daily (finding)[facility] Centertart: [id number] HealthcareStart: 04-86-2641VkzYdqiogAQIP Healthcare Clinical Notes 08-26-2024 to 04-27-2025 Note Date & XahnQssuSldvaldi03-86-0952 History of Present illness Narrative* Cammy Cruz [...] nursing note reviewed. Exam conducted with a rope laying machine operator present. Vitals: Estimated body mass index is 39.51 kg/m as calculated from the following: Height as of 02/09/25: 5' 11 . Weight as of this encounter: 283 lb 4 oz. BP: 138/70 Patient's last menstrual period was 01/26/2025. Assessment/Plan ICD-10-CM 1. Second trimester ([facility]) Z34.92 POCT urinalysis dipstick manually resulted 2. 14 weeks gestation of ([facility]) Z3A.14 Return OB: Patient presents today for [...] of: Cammy Cruz NP documented in this encounterFulton State [id number] History of Present illness Narrative* Bernadette Haynes [...] supervision of normal first in first trimester ([facility]) - Rapid drug screen, urine; Future 9 weeks gestation of ([facility]) Nausea - ondansetron ODT (Zofran-ODT) 4 MG disintegrating tablet; Take 1 tablet (4 mg) by mouth every 6 (six) hours if needed for nausea or vomiting Nurse Note: Pt desires Colp billion to one. Pt was advised to have both Colp and labs done at the same time @ [facility]. Pt complains of nausea in the morning. Zofran was sent into pharmacy. Follow Up: Patient is to have labs drawn at directed and return to office for initial OB appointment with provider. Patient may call office as needed with any concerns or questions. Nurse Visit Completed by: Bernadette Haynes MA documented in this encounterFulton State [id number] History of Present illness Narrative* Luztom Payne, [...] nursing note reviewed. Exam conducted with a rope laying machine operator present. Vitals: Estimated body mass index is [...] of: Carmen Sidhu DO documented in this encounterFulton State [id number] History of Present illness Narrative* Luz PRINCE [...] nursing note reviewed. Exam conducted with a rope laying machine operator present. Vitals: Estimated body mass index is [...] of: Carmen Sidhu DO documented in this encounterFulton State [id number] Evaluation note* Diagnosis Onset Date Resolution Status Admit Date Left ankle sprain noneactiveFebruary 2024 2:18pm [facility] Work Phone: Evaluation note* Diagnosis Onset Date Resolution Status Kidney stone acuteRight flank painacute [facility] Work Phone: Evaluation noteNo assessment information available [facility] Work Phone: Evaluation note* Diagnosis Menorrhagia with regular cycle Dysmenorrhea PCOS (polycystic ovarian syndrome) Polycystic ovaries documented in this encounter [facility] HealthcareEvaluation note* Diagnosis Encounter to discuss test results Other specified counseling Menorrhagia with regular cycle Insulin resistance Other abnormal glucose documented in this encounter [facility] HealthcareEvaluation note* Diagnosis Missed menses , unspecified gestational age ([facility]) Encounter for supervision of normal first in first trimester ([facility]) 9 weeks gestation of ([facility]) Nausea Nausea alone documented in this encounter [facility] HealthcareEvaluation note* Diagnosis Second trimester ([facility]) state, incidental 14 weeks gestation of ([facility]) documented in this encounter [facility] HealthcareReason for referral (narrative)No reason for referral information availableTuscarawas Hospital Work Phone: Summary Purpose Family History [...] and content) DATE CREATED AUTHOR 07/15/2022 [facility] DATE CREATED AUTHOR AUTHOR'S ORGANIZ ATION 02/17/2024 [facility] DATE CREATED AUTHOR AUTHOR'S ORGANIZ ATION 12/04/2024 [facility] DATE CREATED AUTHOR AUTHOR'S ORGANIZ ATION 01/27/2025 [facility] DATE CREATED AUTHOR AUTHOR'S ORGANIZ ATION 04/28/2025 [facility] EPIC Care Teams (unrecognized [...] Member Role Status Dates Shannon Anna APRN FINANCE LECTURER-C Primary Care Provider Active Team Status: Inactive Member Role Status Dates Shannon Anna APRN FINANCE LECTURER-C Primary Care Provider, Attending Provider Active Start: February 09, 2024 End: February 09, 2024 Team Status: Inactive Member Role Status Dates Shannon Anna APRN FINANCE LECTURER-C Primary Care Provider, Attending Provider Active Start: [...] MemberRelationshipSpecialtyStart DateEnd Date Shannon Anna NP [address] [id number] PCP - GeneralFamily Medicine01/12/25Team MemberRelationshipSpecialtyStart DateEnd Date Shannon Anna NP [facility] [place] [address] PCP - GeneralFamily Medicine01/12/25Team MemberRelationshipSpecialtyStart DateEnd Date Shannon Anna NP [address] [place] [address] PCP - GeneralFamily Medicine01/12/25Team MemberRelationshipSpecialtyStart DateEnd Date Shannon Anna NP [address] [place] [address] PCP - GeneralFamily Medicine01/12/25Team MemberRelationshipSpecialtyStart DateEnd Date Shannon Anna NP [address] [facility] [place] [place] [address] PCP - Generalmi Medicine01/12/25Team MemberRelationshipSpecialtyStart DateEnd Date Shannon Anna NP [address] [facility] [address] [facility] - [facility]01/12/25Team MemberRelationshipSpecialtyStart DateEnd Date Shannon Anna NP [address] [facility] [address] PCP - [facility]Fl[facility]01/12/25Team MemberRelationshipSpecialtyStart DateEnd Date Shannon Anna NP [address] [facility] [address] PCP - Generalmi Medicine01/12/25 Goals (unrecognized section [...] BE BASED ON THE PRIMARY CLINICAL RECORDS. [facility] [employer] [facility]. provides no warranty or guarantee of the accuracy or completeness of information in this document.
[2025-06-02 16:09] LABS: Age Gdln ACOG Testing Note (.); IGP, rfx Aptima HPV ASCU Note (.)
== END 2025-06-01 14:56 | disposition home or self-care (01) ==
LOC: LAB 14:55
PROVIDERS: PCP Nurse Practitioner Family; Visit Provider Obstetrics & Gynecology
DX: Z01.419 Encounter for gynecological examination (general) (routine) without abnormal findings (principal)
CPT/HCPCS: 88175